=== PATIENT | female | born 1990 | race Caucasian/White ===

== ENCOUNTER 2018-02-15 06:55 | Emergency (ER) | payer OTHER ==
[2018-02-15 08:03] LABS: ABS Basophils 0.1 10^3/ul (0-0.2); ABS Eosinophils 0.1 10^3/ul (0-0.6); ABS Lymphocytes 2.3 10^3/ul (1.0-4.8); ABS Monocytes 0.6 10^3/ul (0-0.8); ABS Neutrophils 5.7 10^3/ul (1.5-7.7); ABS Nucleated RBC 0 10^3/ul; Eosinophil % 1.7 % (0-6); Hematocrit 39 % (35-47); Hemoglobin 12.9 g/dl (12.0-16.0); Lymphocyte % 25.7 % (25-47); Mean Corpuscular HGB Conc 33 g/dl (31-36); Mean Corpuscular Hemoglobin 27 pg (27-31); Mean Corpuscular Volume 82 fL (80-97); Mean Platelet Volume 8.4 um3 (7.4-10.4); Nucleated Red Blood Cells % 0; Platelet Count 220 10^3/ul (150-450); Red Blood Count 4.71 10^6/ul (4.0-5.4); Red Cell Distribution Width 14 % (10.5-15); White Blood Count 8.8 10^3/ul (3.5-10.8)
--- NOTE | 2018-02-15 08:24 | RAD ---
INDICATION: Early with bleeding COMPARISON: None TECHNIQUE: Transvaginal scans were obtained for the purposes of determination. FINDINGS: There is no evidence of an intrauterine gestation and therefore in the setting of A+ test ectopic cannot be excluded. Suggest correlation with serial beta hCGs and follow-up ultrasonography. There is endometrial reactive change. The stripe measures 1.8 cm. Both ovaries appear normal. The right ovary measures 3.6 x 1.8 x 1.5 cm and the left 3.0 x 2.1 x 2.3 cm. There may be a complex cyst in left ovary measuring 1.7 cm. IMPRESSION: NO IDENTIFIABLE INTRAUTERINE GESTATION. SUGGEST CORRELATION WITH SERIAL BETA-HCGS AND FOLLOW-UP ULTRASONOGRAPHY TO ASSESS FOR THE POSSIBILITY OF EARLY VERSUS ECTOPIC . RECOMMEND GYNECOLOGIC REFERRAL INDICATED.
--- NOTE | 2018-02-15 08:41 | ED ---
- HPI Summary HPI Summary: 27 female presents to ER with complaints of right lower quadrant suprapubic pain that began yesterday, improved overnight however worsened this morning around 5 AM. Patient states it was associated with nausea and one episode of vomiting. Does admit to loose stool. Denies any fever/chills/current nausea. Never has had any abdominal surgeries. States she has had 5 pregnancies 2 abortions 2 children and one current. She is 5-1/2 weeks estimated. Last menstrual period was January 07, 2018. States she had some vaginal bleeding this morning however it has since seemed to subside. Was not on any control measures. Confirmed with at-home tests as well as blood work at [facility] last week. No history of ectopic . No past medical history. No medication use. No other complaints. No concern for infection no STD history. No urinary symptoms. - History of Current Complaint Chief Complaint: EDAbdPain Stated Complaint: ABD PAIN Time Seen by Provider: 02/15/18 07:08 Hx Obtained From: Patient Onset/Duration: Started Days Ago - Yesterday, Resolved - 5 out of 10 Timing: Constant, Lasting Hours Severity: Mild - Currently Current Severity: Severe Pain Intensity: 8 Location of Pain: Right Side, Suprapubic Character: Cramping Aggravating Factors: Coughing Alleviating Factors: Nothing Associated Signs and Symptoms: Positive: Nausea, Vaginal Bleeding or Discharge, Vomiting - Assessment Hx Now: Yes Hx : 5 Hx Para: 2 SAB: 0 IEA: 2 History of Ectopic : No Hx Pelvic Inflammatory Disease: No Vaginal Bleeding Amount: Small - Additional Pertinent History Maternal Blood Type and Rh: O Positive - Allergies/Home Medications Allergies/Adverse Reactions: Allergies Allergy/AdvReac Type Severity Reaction Status Date / Time No Known Allergies Allergy Verified 06/14/16 00:42 Home Medications: Home Medications Docusate CAP* [Colace Cap*] 100 mg PO TID PRN 02/15/18 [History Confirmed ] Vit No.129/Iron/Folic [ One Daily] 1 tab PO DAILY 02/15/18 [ History Confirmed 02/15/18] PMH/Surg Hx/FS Hx/Imm Hx Endocrine/Hematology History: Denies: Hx Diabetes Cardiovascular History: Denies: Hx Valvular Heart Disease Respiratory History: Reports: Hx Asthma - Surgical History Surgery Procedure, Year, and Place: n/a - Immunization History Immunizations Up to Date: Yes Infectious Disease History: No Infectious Disease History: Denies: History Other Infectious Disease, Traveled Outside the [place] in Last 30 Days - Family History Known Family History: Positive: None Family History: NON CONTRIBUTORY - Social History Alcohol Use: None Substance Use Type: Reports: None Smoking Status (MU): Never Smoked Tobacco Type: Cigarettes Amount Used/How Often: 1/2 PPD Have You Smoked in the Last Year: Yes Review of Systems Constitutional: Negative Cardiovascular: Negative Respiratory: Negative Positive: Abdominal Pain, Vomiting, Diarrhea, Nausea Genitourinary: Negative Musculoskeletal: Negative Skin: Negative Neurological: Negative All Other Systems Reviewed And Are Negative: Yes Physical Exam - Physical Exam Triage Information Reviewed: Yes Vital Signs On Initial Exam: Temp 98.5 Blood pressure 117/69 Heart rate 77 Respirations 18 O2 98 Vital Signs Reviewed: Yes Appearance: Positive: Well-Appearing, Well-Nourished, Pain Distress - Mild with palpation of abdomen and examination Skin: Positive: Warm, Skin Color Reflects Adequate Perfusion, Dry. Negative: Cold, Numb, Cyanosis @, Pale, Erythema @ Head/Face: Positive: Normal Head/Face Inspection Eyes: Positive: Conjunctiva Clear ENT: Positive: Pharynx normal Neck: Positive: Supple, Nontender Respiratory/Lung Sounds: Positive: Clear to Auscultation, Breath Sounds Present. Negative: Rales, Rhonchi, Wheezes Cardiovascular: Positive: Normal, RRR, Bradycardia. Negative: Murmur, Rub Abdomen Description: Positive: No Organomegaly, Soft, Guarding, Other: - Negative Rovsing, rebound, psoas, Wallace's, does have right lower quadrant/ suprapubic pain/groin on palpation. Negative: Bruit, CVA Tenderness (R), CVA Tenderness (L), Distended, McBurney's Point Tenderness Bowel Sounds: Positive: Present, Hyperactive Musculoskeletal: Positive: Normal, Strength/ROM Intact Neurological: Positive: Normal, Sensory/Motor Intact, Alert, Oriented to Person Place, Time, NV Bundle Intact Distally, Normal Gait Diagnostics - Vital Signs Vital Signs Temp Pulse Resp BP Pulse Ox 02/15/18 08:06 74 107/63 96 02/15/18 08:00 72 95 02/15/18 07:36 76 110/78 98 02/15/18 07:07 78 117/69 95 02/15/18 07:06 77 95 02/15/18 07:03 98.5 F 77 18 117/69 95 - Laboratory Lab Results: Lab Results 02/15/18 02/15/18 Range/Units 07:55 07:55 WBC 8.8 (3.5-10.8) 10^3/ul RBC 4.71 (4.0-5.4) 10^6/ul Hgb 12.9 (12.0-16.0) g/dl Hct 39 (35-47) % MCV 82 (80-97) fL MCH 27 (27-31) pg MCHC 33 (31-36) g/dl RDW 14 (10.5-15) % Plt Count 220 (150-450) 10^3/ul MPV 8.4 (7.4-10.4) um3 Neut % (Auto) 64.8 (38-83) % Lymph % (Auto) 25.7 (25-47) % [place] % (Auto) 7.1 H (0-7) % Eos % (Auto) 1.7 (0-6) % Baso % (Auto) 0.7 (0-2) % Absolute Neuts (auto) 5.7 (1.5-7.7) 10^3/ul Absolute Lymphs (auto) 2.3 (1.0-4.8) 10^3/ul Absolute Monos (auto) 0.6 (0-0.8) 10^3/ul Absolute Eos (auto) 0.1 (0-0.6) 10^3/ul Absolute Basos (auto) 0.1 (0-0.2) 10^3/ul Absolute Nucleated RBC 0 10^3/ul Nucleated RBC % 0 Sodium 136 L (139-145) mmol/L Potassium 3.9 (3.5-5.0) mmol/L Chloride 107 (101-111) mmol/L Carbon Dioxide 22 (22-32) mmol/L Anion Gap 7 (2-11) mmol/L BUN 16 (6-24) mg/dL Creatinine 0.78 (0.51-0.95) mg/dL Est GFR ( Amer) 115.7 (>60) Est GFR (Non-Af Amer) 90.0 (>60) BUN/Creatinine Ratio 20.5 H (8-20) Glucose 110 H (70-100) mg/dL Calcium 9.4 (8.6-10.3) mg/dL Total Bilirubin 0.60 (0.2-1.0) mg/dL AST 14 (13-39) U/L ALT 9 (7-52) U/L Alkaline Phosphatase 45 (34-104) U/L C-Reactive Protein 1.40 (< 5.00) mg/L Total Protein 7.0 (6.4-8.9) g/dL Albumin 4.4 (3.2-5.2) g/dL Globulin 2.6 (2-4) g/dL Albumin/Globulin Ratio 1.7 (1-3) Beta HCG, Quant 428.28 mIU/mL Result Diagrams: 02/15/18 07:55 02/15/18 07:55 Lab Statement: Any lab studies that have been ordered have been reviewed, and results considered in the medical decision making process. - Ultrasound No standard instances Ultrasound Interpretation: No Acute Changes - NO IDENTIFIABLE INTRAUTERINE GESTATION. SUGGEST CORRELATION WITH SERIAL BETA-HCGS AND FOLLOW-UP ULTRASONOGRAPHY TO ASSESS FOR THE POSSIBILITY OF EARLY VERSUS ECTOPIC . RECOMMEND GYNECOLOGIC REFERRAL INDICATED. Appendix: NONVISUALIZATION OF THE APPENDIX. SUGGEST CT IMAGING AND/OR SURGICAL REFERRAL INDICATED FOR PERSISTENT CONCERN OF ACUTE APPENDICITIS. Ultrasound Interpretation Completed By: Radiologist Re-Evaluation - Re-Evaluation First Eval Re-Evaluation Time: 09:40 Change: Improved - Feeling okay updated on all imaging and labs. Agree and understand the plan. Course/Dx - Course Course Of Treatment: Transvaginal ultrasound as well as appendix ultrasound obtained both unremarkable. No IUP was noted and suggestion of complex area on the right. Beta hCG 428. Rest of labs unremarkable without white count and no elevation of CRP. No concern for appendicitis at this time. Appears to be related. Normal vitals rest of physical exam. Pelvic exam performed and unremarkable. Cultures were obtained and pending results. No concern for infection at this time. Spoke with Dr. Wagner as concern for ectopic although early he stated he would follow up with her in 48 hours. States the beta-hCG is 2 small at this time and if anything is early IUP versus threatened miscarriage versus ectopic . Patient was informed of this information she agrees and understands plan. Tylenol and heating pad. If pain worsens or returns is persistent or new symptoms develop including excessive bleeding to return to the ER as this could be a surgical emergency. No further workup required at this time. No other concerns. Follow-up. - Differential Diagnosis/HQI/PQRI: Threatened , Appendicitis, Ectopic , Intrauterine , Early , Vaginal Bleeding - Diagnoses Provider Diagnoses: Right lower quadrant pain, Discharge - Sign-Out/Discharge Documenting (check all that apply): Discharge/Admit/Transfer - Discharge Plan Condition: Stable Disposition: HOME Patient Education Materials: Ectopic (DC), Threatened Miscarriage (ED ), (ED) Referrals: Kim Pino NP [Primary Care Provider] - Donna Wagner MD [Medical Doctor] - Additional Instructions: Please call today to make an appointment with OBGYN for repeat bloodwork/ imaging within 48 hours. Tylenol and heating pad. Any new or worsening symptoms, or if symptoms return please return to ER as we discussed. Increase fluids, get plenty of rest. - Billing Disposition and Condition Condition: STABLE Disposition: HOME
--- NOTE | 2018-02-15 09:33 | RAD ---
INDICATION: Right lower quadrant pain COMPARISON: None TECHNIQUE: Transverse and longitudinal scans of the right lower quadrant were performed utilizing grayscale and color Doppler imaging. FINDINGS: There is nonvisualization the appendix. The examination is therefore indeterminate. There is no mass or free fluid in the right lower quadrant. IMPRESSION: NONVISUALIZATION OF THE APPENDIX. SUGGEST CT IMAGING AND/OR SURGICAL REFERRAL INDICATED FOR PERSISTENT CONCERN OF ACUTE APPENDICITIS.
[2018-02-15 10:03] VITALS: BP 111/73
--- NOTE | 2018-02-16 17:47 | ED ---
Progress - Progress Note Progress Note: Patient's vaginal culture negative for Penny but positive for Gardnerella. Patient's hCG is in the low 400s and ultrasound was indeterminant at time of visit. She has a follow-up tomorrow with Dr. Wagner. Left message to call with patient and will fax results to Dr. Wagner's office in the event he may want to treat however early in and without symptoms these infections are sometimes not treated with antibiotics. No further action at this time. Re-Evaluation - Re-Evaluation First Eval Re-Evaluation Time: 09:40 Change: Improved - Feeling okay updated on all imaging and labs. Agree and understand the plan. Course/Dx - Course Course Of Treatment: Transvaginal ultrasound as well as appendix ultrasound obtained both unremarkable. No IUP was noted and suggestion of complex area on the right. Beta hCG 428. Rest of labs unremarkable without white count and no elevation of CRP. No concern for appendicitis at this time. Appears to be related. Normal vitals rest of physical exam. Pelvic exam performed and unremarkable. Cultures were obtained and pending results. No concern for infection at this time. Spoke with Dr. Wagner as concern for ectopic although early he stated he would follow up with her in 48 hours. States the beta-hCG is 2 small at this time and if anything is early IUP versus threatened miscarriage versus ectopic . Patient was informed of this information she agrees and understands plan. Tylenol and heating pad. If pain worsens or returns is persistent or new symptoms develop including excessive bleeding to return to the ER as this could be a surgical emergency. No further workup required at this time. No other concerns. Follow-up. - Diagnoses Provider Diagnoses: Right lower quadrant pain, Discharge - Sign-Out/Discharge Documenting (check all that apply): Post-Discharge Follow Up - Discharge Plan Condition: Stable Disposition: HOME Patient Education Materials: Ectopic (DC), Threatened Miscarriage (ED ), (ED) Referrals: Kim Pino NP [Primary Care Provider] - Donna Wagner MD [Medical Doctor] - Additional Instructions: Please call today to make an appointment with OBGYN for repeat bloodwork/ imaging within 48 hours. Tylenol and heating pad. Any new or worsening symptoms, or if symptoms return please return to ER as we discussed. Increase fluids, get plenty of rest. - Billing Disposition and Condition Condition: STABLE Disposition: HOME
== END 2018-02-15 10:02 | disposition home or self-care (01) ==
LOC: ED 06:55
DX: O26.891 Other specified pregnancy related conditions, first trimester (principal); Z3A.01 Less than 8 weeks gestation of pregnancy; R10.31 Right lower quadrant pain
CPT/HCPCS: 36415; 76705; 76817; 80053; 84702; 85025; 86140; 86850; 86900; 86901; 87480; 87491; 87510; 87591; 87661; 99283

== ENCOUNTER 2018-03-10 20:37 | Emergency (ER) | payer OTHER ==
--- OUTSIDE RECORDS SUMMARY | 2018-03-10 20:43 | XMS REPORT ---
:1990 External Reference #:[id number] Author Organization [facility] Address [address] [place] [address] Phone [phone] Care Team Providers Name Role Phone Kim Pino GOVERNMENT CLERK Primary Care Physician Unavailable Payers Type Date Identification Numbers Payment Provider Subscriber Commercial Policy Number: [id number] Aetshree Boo Edvin Paulo Group Number: [id number] [address] PayID: [id number] [place] [address] Medigap Part B Expires: 2015 Policy Number: [id number] Aetshree Boo Robin Bates Group Number: [id number] [address] PayID: [id number] [place] [address] Medigap Part B Effective: 2015 Policy Number: [id number] Medicaid ELIZ Bates Expires: 2018 PayID: [id number] [address] [place] [address] Problems Description No Active Problems Family History Date Family Member(s) Problem(s) Comments Father A&W Mother A&W Children 2 First Son A&W First Daughter A&W First Sister A&W Paternal Grandfather due to Cancer () Paternal Grandmother A&W Maternal Grandfather due to MVA () Maternal Grandmother A&W Social History Type Date Description Comments Education Highest level completed, 12th grade GED Marital Status Single Lives With Boyfriend Lives With Daughter Lives With Son Pets 1 dog Occupation Homemaker Cigarette Use Current Cigarette Smoker 1-5 Cigarettes Daily ETOH Use Denies alcohol use Recreational Drug Use Former Drug User +MJ Smoking Patient is a former smoker Daily Caffeine Consumes on average 5 cups of coffee per day Seat Belt/Car Seat Always uses seat belt Currently Active Patient is currently sexually active Contraceptive Methods Current methods include condoms STD's No STD History Allergies, Adverse Reactions, Alerts Date Description Reaction Status Severity Comments 06/16/2012 NKDA active Medications Medication Date Status Form Strength Qnty SIG Indications Ordering Provider Zantac 75 01/17/ Active Tablets 75mg 30tabs 1 tab by mouth Barbara 2016 every day as Hiro needed for , SHEMAR heartburn Breast Pump 12/15/ Active Misc 1units Use as Barbara 2012 directed Hiro , SHEMAR Proventil 06/16/ Active Aerosol 108(90Base 1units 2 puffs prn Moses MEEHAN 2011 ) afsaneh/chandana Loya M.D. Colace 02/15/ Hx Capsules 100mg Three Times Unknown 2018 - Daily 2017 One 02/15/ Hx Tablets Every Day Unknown Daily 2017 - 2017 Tylenol 06/16/ Hx Tablets 325mg 0tabs Q4H Unknown 2015 - 2017 Motrin 06/16/ Hx Tablets 600mg 20tabs Q6H Unknown 2015 - Repack 2017 Micronor 12/15/ Hx Tablets 0.35mg 1Pack 1 tab by mouth Barbara 2012 - every day at Hiro 01/16/ the same time , [facility] 2016 each day Colace 11/14/ Hx Capsules 100mg 60caps 1 tab PO bid Barbara 2012 - prn Hiro 01/16/ Constipation , [facility] 2015 Ferrousul 11/14/ Hx Tablets 325(65Fe) 90tabs 1 tab by mouth Barbara 2012 - mg twice a day Hiro 01/16/ (take with , [facility] 2015 orange juice or vit c tab) Ibuprofen 11/14/ Hx Tablets 600mg 30tabs 1 Tab PO q Barbara 2012 - 6hrs prn Pain Hiro 01/16/ , [facility] 2016 Immunizations CPT Code Status Date Vaccine Lot # [id number] Given 03/31/2016 Tetnus, Diptheria Toxoids And Acellular Pertussis, [id number] PT > 7Yrs Old [address]842 Given 09/08/2012 Tetnus, Diptheria Toxoids And Acellular Pertussis, PT > 7Yrs Old [address] Given 09/08/2012 Influenza Virus Vaccine 3Years Or Older Vital Signs Date Vital Result Comment 02/17/2018 BP Systolic 122 mmHg BP Diastolic 80 mmHg Height 67 inches 5'7" Weight 132.00 lb BMI (Body Mass Index) 20.7 kg/m2 Last Menstrual Period [id number] 4 Parity 2 02/15/2018 BP Systolic 111 mmHg BP Diastolic 73 mmHg Body Temperature 98.8 F Heart Rate 82 /min Respiratory Rate 16 /min Height 67 inches Weight 120.00 lb BMI (Body Mass Index) 18.8 kg/m2 01/18/2016 BP Systolic 118 mmHg BP Diastolic 62 mmHg Height 66.50 inches 5'6.50" Weight 140.00 lb BMI (Body Mass Index) 22.3 kg/m2 Last Menstrual Period [id number] 4 Parity 1 12/15/2012 BP Systolic 104 mmHg BP Diastolic 60 mmHg Height 66.50 inches 5'6.50" Weight 127.00 lb BMI (Body Mass Index) 20.2 kg/m2 Last Menstrual Period 8106349 del 11/12/12 1 Parity 1 06/16/2012 BP Systolic 90 mmHg BP Diastolic 60 mmHg Height 66.50 inches 5'6.50" Weight 120.00 lb BMI (Body Mass Index) 19.1 kg/m2 Last Menstrual Period 2606392 1 Parity 0 Results Test Date Test Result H/L Range Note Laboratory Studies 02/15/2018 Absolute Basophils (auto) 0.1 10^3/ul 0- 0.2 Absolute Eosinophils (auto) 0.1 10^3/ul 0-0.6 Absolute Lymphocytes (auto) 2.3 10^3/ul 1.0-4.8 Absolute Monocytes (auto) 0.6 10^3/ul 0-0.8 Absolute Neutrophils (auto) 5.7 10^3/ul 1.5-7.7 Alanine Aminotransferase (Alt/SGPT) 9 U/L 7-52 Albumin 4.4 g/dL 3.2-5.2 Albumin/Globulin Ratio 1.7 1-3 Alkaline Phosphatase 45 U/L 34-104 Anion Gap 7 mmol/L 2-11 Aspartate Amino Transf (Ast/Sgot) 14 U/L 13-39 BUN/Creatinine Ratio 20.5 High 8-20 Basophils (%) (Auto) 0.7 % 0-2 Beta HCG, Quantitative 428.28 mIU/mL Blood Urea Nitrogen 16 mg/dL 6-24 C-Reactive Protein 1.40 mg/L 0-5.00 Calcium Level 9.4 mg/dL 8.6-10.3 Carbon Dioxide Level 22 mmol/L 22-32 Chloride Level 107 mmol/L 101-111 Creatinine 0.78 mg/dL 0.51-0.95 Eosinophils (%) (Auto) 1.7 % 0-6 Estimated GFR () 115.7 Estimated GFR (Non- 90.0 Globulin 2.6 g/dL 2-4 Glucose Level 110 mg/dL High 70-100 Hematocrit 39 % 35-47 Hemoglobin 12.9 g/dL 12.0-16.0 Lymphocytes (%) (Auto) 25.7 % 25-47 Mean Corpuscular Hemoglobin 27 pg 27-31 Mean Corpuscular Hemoglobin Concent 33 g/dL 31-36 Mean Corpuscular Volume 82 fL 80-97 Mean Platelet Volume 8.4 um3 7.4-10.4 Monocytes (%) (Auto) 7.1 % High 0-7 Neutrophils (%) (Auto) 64.8 % 38-83 Nucleated RBC Absolute Count (auto) 0 10^3/ul Nucleated Red Blood Cells % 0 Platelet Count 220 10^3/ul 150-450 Potassium Level 3.9 mmol/L 3.5-5.0 Red Blood Count 4.71 10^6/ul 4.0-5.4 Red Cell Distribution Width 14 % 10.5-15 Sodium Level 136 mmol/L Low 139-145 Total Bilirubin 0.60 mg/dL 0.2-1.0 Total Protein 7.0 g/dL 6.4-8.9 White Blood Count 8.8 10^3/ul 3.5-10.8 Laboratory test finding 06/05/2016 Rupture of Membranes Negative 1 Laboratory test finding 05/16/2016 Genital For GRP B Strep SEE RESULT BELOW 2 Only Glucose Tolerance 3HR 04/02/2016 GTT 3HR Gestational (SEE NOTE) 3 Gestational Urine Drug Comp 20 Test 03/31/2016 Urine Amphetamine Negative ng/mL 4 Urine Barbiturates Negative ng/mL 5 Urine Benzodiazepines Negative ng/mL 6 Urine Cocaine Negative ng/mL 7 Urine Methadone Negative ng/mL 8 Urine Opiates Negative ng/mL 9 Urine Phencyclidine Negative ng/mL Cutoff: 25 Urine Tetrahydrocannabinol Negative ng/mL Cutoff: 50 10 Urine Oxycodone Negative ng/mL 11 Laboratory test finding 03/31/2016 Glucose 1 HR Post 170 mg/dL High 70- 160 12 Prandial CBC With No Diff 03/31/2016 White Blood Count 10.5 10^3/uL 3.5-10.8 Red Blood Count 3.79 10^6/uL Low 4.0-5.4 Hemoglobin 10.5 g/dL Low 12.0-16.0 Hematocrit 32 % Low 35-47 Mean Corpuscular Volume 85 fL 80-97 Mean Corpuscular Hemoglobin 28 pg 27-31 Mean Corpuscular HGB Conc 33 g/dL 31-36 Red Cell Distribution Width 14 % 10.5-15 Platelet Count 185 10^3/uL 150-450 Mean Platelet Volume 9 um3 7.4-10.4 Laboratory test 03/31/2016 Gardnerella/Yeast: Vaginal SEE RESULT BELOW 13 finding Dna Urine Drug Comp 20 02/15/2016 Urine Amphetamine Negative ng/mL 14 Test Urine Barbiturates Negative ng/mL 15 Urine Benzodiazepines Negative ng/mL 16 Urine Cocaine Negative ng/mL 17 Urine Methadone Negative ng/mL 18 Urine Opiates Negative ng/mL 19 Urine Phencyclidine Negative ng/mL Cutoff: 25 Urine Tetrahydrocannabinol Presumptive Posi <SEE NOTE> ng/mL Cutoff: 50 20 Urine Oxycodone Negative ng/mL 21 THC Confirmation Urine 02/15/2016 Urine Carboxy THC Confirm 72 ng/mL 22 Urine THC Interpretation Positive. 23 GC/Chlamydia Dna Probe 02/15/2016 Chlamydia trachomatis Rna Negative Negative Neisseria gonorrhoeae (GC) Rna Negative Negative Urine Culture And 01/18/2016 Urine Culture SEE RESULT BELOW 24 Sensitivities Lead 01/18/2016 Lead <1.0 g/dL 0.0-4.9 HIV 1/2 AB Evaluation 01/18/2016 HIV 1 2 Antibody Nonreactive Nonreactive 25 Type And Screen 01/18/2016 Antibody Screen NEGATIVE Patient Blood Type O Positive CBC With No Diff 01/18/2016 White Blood Count 7.9 10^3/uL 3.5-10.8 Red Blood Count 3.82 10^6/uL Low 4.0-5.4 Hemoglobin 10.7 g/dL Low 12.0-16.0 Hematocrit 32 % Low 35-47 Mean Corpuscular Volume 84 fL 80-97 Mean Corpuscular Hemoglobin 28 pg 27-31 Mean Corpuscular HGB Conc 33 g/dL 31-36 Red Cell Distribution Width 14 % 10.5-15 Platelet Count 199 10^3/uL 150-450 Mean Platelet Volume 9 um3 7.4-10.4 PNL No Urine 01/18/2016 Rubella Screen Immune IU/mL Immune Hemoglobin A1c 5.2 % Less than 6.0 26 Hepatitis B Surface Ag Nonreactive Nonreactive Syphillis Igg W/Reflex RPR Nonreactive Nonreactive 27 Parvovirus B19 AB (Igg,M) 01/18/2016 Parvovirus B19 AB (Igm) 0.1 index & lt;0.9 28 Parvovirus B19 AB (Igg) 0.3 index <0.9 Laboratory test finding 10/06/2012 Group B Strep Culture Screen (SEE NOTE) 29 Urine Drug Comp 20 Test 10/06/2012 Urine Amphetamine Negative ng/mL 30 Urine Barbiturates Negative ng/mL 31 Urine Benzodiazepines Negative ng/mL 32 Urine Cocaine Negative ng/mL 33 Urine Methadone Negative ng/mL 34 Urine Opiates Negative ng/mL 35 Urine Phencyclidine Negative ng/mL Cutoff: 25 Urine Propoxyphene Negative ng/mL 36 Urine Tetrahydrocannabinol Presumptive Posi <SEE NOTE> ng/mL Cutoff: 20 37 Creatinine 114.7 mg/dL Specific [place] 1.018 pH 6.9 Oxidants Negative 38 Urine Opiates Screen Negative 39 Urine Codeine Confirmation Negative ng/mL 40 Urine Hydrocodone Confirm Negative ng/mL 41 Urine Hydromorphone Confirm Negative ng/mL 42 Urine Morphine Confirm Negative ng/mL 43 Urine Oxycodone Confirm Negative ng/mL 44 Urine Opiates Interpretation Negative. 45 THC Confirmation Urine 10/06/2012 Urine THC Screen TNP Cutoff: 20 46 Urine THC Interpretation TNP 47 Glucose Tolerance 2HR 08/11/2012 GTT 2HR Gestational (SEE NOTE) 48 Gestational CBC Auto Diff 08/11/2012 White Blood Count 11.4 10^3/uL High 4.8-10.8 Red Blood Count 3.74 10^6/uL Low 4.0-5.4 Hemoglobin 10.8 g/dL Low 12.0-16.0 Hematocrit 33 % Low 35-47 Mean Corpuscular Volume 89 fL 80-97 Mean Corpuscular Hemoglobin 29 pg 27-31 Mean Corpuscular HGB Conc 32 g/dL 31-36 Red Cell Distribution Width 15 % 10.5-15 Platelet Count 185 10^3/uL 150-450 Mean Platelet Volume 9 um3 7.4-10.4 Abs Neutrophils 7.7 10^3/uL 1.5-7.7 Abs Lymphocytes 2.6 10^3/uL 1.0-4.8 Abs Monocytes 0.9 10^3/uL High 0-0.8 Abs Eosinophils 0.1 10^3/uL 0-0.6 Abs Basophils 0.1 10^3/uL 0-0.2 Abs Nucleated RBC 0.01 10^3/uL Granulocyte % 68.0 % 38-83 Lymphocyte % 22.4 % Low 25-47 Monocyte % 7.9 % 1-9 Eosinophil % 1.2 % 0-6 Basophil % 0.5 % 0-2 Nucleated Red Blood Cells % 0.1 THC Confirmation Urine 08/11/2012 Urine THC Screen Presumptive Posi Cutoff: 20 49 <SEE NOTE> Urine Carboxy THC Confirm 244 ng/mL Cutoff: 3 Urine THC Interpretation Positive. 50 Urine Drug Comp 20 Test 08/11/2012 Urine Amphetamine Negative ng/mL 51 Urine Barbiturates Negative ng/mL 52 Urine Benzodiazepines Negative ng/mL 53 Urine Cocaine Negative ng/mL 54 Urine Methadone Negative ng/mL 55 Urine Opiates Negative ng/mL 56 Urine Phencyclidine Negative ng/mL Cutoff: 25 Urine Propoxyphene Negative ng/mL 57 Urine Tetrahydrocannabinol Presumptive Posi <SEE NOTE> ng/mL Cutoff: 20 58 Creatinine 124.8 mg/dL Specific [place] 1.022 pH 6.8 Oxidants Negative 59 Urine Opiates Screen Negative 60 Urine Codeine Confirmation Negative ng/mL 61 Urine Hydrocodone Confirm Negative ng/mL 62 Urine Hydromorphone Confirm Negative ng/mL 63 Urine Morphine Confirm Negative ng/mL 64 Urine Oxycodone Confirm Negative ng/mL 65 Urine Opiates Interpretation Negative. 66 Urine Drug SCR ED 08/01/2012 Amphetamine Ur Screen None Detected None Detect & [facility] Barbiturates Urine Screen None Detected None Detect Benzodiazepine Urine Screen None Detected None Detect Urine Cannabinoids Screen Positive None Detect Urine Cocaine Screen None Detected None Detect Urine Opiates Screen None Detected None Detect Urine Phencyclidine Screen None Detected None Detect 67 Urinalysis W/Microscopic 08/01/2012 Urine Color Francoise Urine Appearance Clear Urine Specific [place] 1.023 1.010-1.030 Urine Esterase Trace Negative Urine Nitrate Negative Negative Urine Urobilinogen Negative Negative Urine Protein Negative Negative Urine pH 6.0 5-9 Urine Blood Negative Negative Urine Ketones Negative Negative Urine Bilirubin Negative Negative Urine Glucose Negative Negative Urine WBC None Seen None Seen Urine RBC None Seen None Seen Urine Epithelial Cells 1+ Squamous /hpf None Seen Bacteria Urine 1+ None Seen Urine Culture And 08/01/2012 Urine Culture (SEE NOTE) 68 Sensitivities Prental PNL No Urine 06/16/2012 Hepatitis B Surface Nonreactive Nonreactive Ag Rubella Screen IMMUNE Immune Hemoglobin A1c 5.4 % Less Than 6.0 69 Syphilis Screen 06/16/2012 Syphilis IgG TNP Nonreactive RPR NON-REACTIVE Nonreactive RPR Titer TNP Pediatric/Maternal YES Vad 06/16/2012 Vad Final Nonreactive Nonreactive 70 Type & Screen 06/16/2012 Patient Blood Type O POSITIVE Antibody Screen NEGATIVE CBC No Diff 06/16/2012 White Blood Count 13.0 CUMM High 4.8-10.8 Red Cell Count 3.75 CUMM Low 4.2-5.4 Hemoglobin 10.7 g/dL Low 12.0-16.0 Hematocrit 32 % Low 35-47 Mean Corpuscular Volume 85 um3 79-97 Mean Corpuscular Hemoglob 29 pg 27-31 Mean Corpuscular HGB Cone 34 g/dL 32-36 Redcell Distribution WDTH 14 % 10.5-15 Platelet Count 182 CUMM 150-450 Mean Platelet Volume 8.7 um3 7.4-10.4 GC/Chlamydia Aptima 06/16/2012 M <SEE NOTE> 71 Urine Culture & Sensitivi 06/16/2012 M <SEE NOTE&gt ; 72 1 A NEGATIVE results indicates there is no evidence of membrane rupture. 2 SEE RESULT BELOW Name: ROBIN BATES : [address]: Lore CLEMENTE Acct: [id number] Unit: [id number] AGE: 25 Location: [facility] Re05/16/16 SEX: F Status: REG REF SPEC: [id number] KELSIE: 05/16/16-[address]: Lore Brand [facility] REQ: [id number] RECD: 05/16/16 STATUS: COMP _ SOURCE: CER/VAG/RE SPDESC: ORDERED: Grp B Strp Scrn COMMENTS: [id number] QUERIES: Is Patient Penicillin Allergic? N Is patient penicillin allergic and/or sensitivities needed? N Provider Requisition # [id number]_ Procedure Result Reported Site Group B Strep Culture Screen Final 05/18/16- 1108 ML Group B Strep Screen Negative * ML - [facility] ([facility]) . END OF REPORT * ML=Testing performed at Main Lab DEPARTMENT OF PATHOLOGY, [address] [place] [address] Ko Cox M.D. Director [facility] # [id number] 3 GLU Fast 76 Col: 04/02/16 0835 GLU 1HR 105 Col: 04/02/16 0942 GLU 2HR 82 Col: 04/02/16 1042 GLU 3HR 52 Col: 04/02/16 1147 GLU Interp Col: 04/02/16 0835 GTT normal ranges for obstetrics per the [place] [employer] (ACOG).Based on 100 gm glucose load: Fasting <95 mg/dl 1hr <180 mg/dl 2hr <155 mg/dl 3hr <140 mg/dl 4 REFERENCE VALUE Cutoff: 500 5 REFERENCE VALUE Cutoff: 200 6 REFERENCE VALUE Cutoff: 100 7 REFERENCE VALUE Cutoff: 150 8 REFERENCE VALUE Cutoff: 300 9 REFERENCE VALUE Cutoff: 300 10 ADDITIONAL INFORMATION This report is intended for use in clinical monitoring or management of patients. It is not intended for use in employment-related testing. 11 REFERENCE VALUE Cutoff: 100 ADDITIONAL INFORMATION This report is intended for use in clinical monitoring or management of patients. It is not intended for use in employment-related testing. Test Performed by: [address] [address] Cafe Associate: Efrain Martinez II, M.D., Ph.D. 12 [facility] [place] 3155 13 SEE RESULT BELOW Name: ROBIN BATES : [address]: Peggy MARIN Acct: [id number] Unit: [id number] AGE: 25 Location: [facility] Re03/31/16 SEX: F Status: REG REF SPEC: [id number] KELSIE: 03/31/16-[address] [facility] [address]: Peggy Cochran CM REQ: [id number] RECD: 04/01/16 STATUS: COMP _ S[facility] ORDERED: Mike,Yeast DNA, Trich DNA COMMENTS: [id number] Procedure Result Reported Site Gardnerella/Yeast: Vaginal DNA Final 04/02/16- 1056 ML Organism 1 Negative Penny Organism 2 Negative Gardnerella The presence of G. vaginalis, although suggestive, is not diagnostic for bacterial vaginosis. Results should be interpreted in conjuction with other clinical and laboratory data available. Women with vaginal discharge should be evaluated for risk factors of cervicitis and pelvic inflammatory disease, toxic shock syndrome (S.aureus), and if present, evaluated for organisms not included in this assay such as N. gonorrhoeae, C. trachomatis, Mobiluncus, Mycoplasma and/or Prevotella. Mixed infections may occur. The performance of this test on patient specimens collected during or immediately after antimicrobial therapy is unknown. The presence or absence of Penny species, or G. vaginalis cannot be used as a test for therapeutic success or failure. Trichomonas: Vaginal DNA Probe Final 04/02/16- 1056 ML Organism 1 Negative Trichomonas CONTINUED ON NEXT PAGE * ML=Testing performed at Main Lab DEPARTMENT OF PATHOLOGY, [address] [place] [address] Ko Cox M.D. Director [facility] # [id number] Patient: ROBIN BATES [id number] (Continued) Specimen: [id number] Collected: 03/31/16-1427 Received: 04/01/16-1101 (Continued) Procedure Result Reported Site Trichomonas: Vaginal DNA Probe Final (continued) 04/02/16- 1056 The presence or absence of T. vaginalis cannot be used as a test for therapeutic success or failure. * ML - MAIN LAB ([facility]) . END OF REPORT * ML=Testing performed at Main Lab DEPARTMENT OF PATHOLOGY, [address] [place] [address] Ko Cox M.D. Director [facility] # [id number] 14 REFERENCE VALUE Cutoff: 500 15 REFERENCE VALUE Cutoff: 200 16 REFERENCE VALUE Cutoff: 100 17 REFERENCE VALUE Cutoff: 150 18 REFERENCE VALUE Cutoff: 300 19 REFERENCE VALUE Cutoff: 300 20 Presumptive Positive Drug confirmation to follow. Presumptive Positive means that the screening method is positive, but the test needs to be run by a confirmatory method before being finalized. ADDITIONAL INFORMATION This report is intended for use in clinical monitoring or management of patients. It is not intended for use in employment-related testing. 21 REFERENCE VALUE Cutoff: 100 ADDITIONAL INFORMATION This report is intended for use in clinical monitoring or management of patients. It is not intended for use in employment-related testing. Test Performed by: [facility] [address] Cafe Associate: Efrain Martinez II, M.D., Ph.D. 22 REFERENCE VALUE Cutoff: 3.0 23 ADDITIONAL INFORMATION This report is intended for use in clinical monitoring and management of patients. It is not intended for use in employment-related testing. Test Performed by: [facility] [place] [id number] Cafe Associate: Efrain Martinez II, M.D., Ph.D. 24 SEE RESULT BELOW Name: ROBIN BATES : [address]: Barbara Bosch [facility] Acct: [id number] Unit: [id number] AGE: 25 Location: [facility] Re01/18/16 SEX: F Status: REG REF SPEC: [id number] KELSIE: 01/18/16-[address]: Barbara Bosch [facility] REQ: [id number] RECD: 01/18/16 STATUS: COMP _ SOURCE: URINE SPDESC: ORDERED: Urine Culture Procedure Result Reported Site Urine Culture Final 01/20/16- 0836 ML No growth of clinically significant organisms * ML - MAIN LAB ([facility]) . END OF REPORT * ML=Testing performed at Main Lab DEPARTMENT OF PATHOLOGY, [address] [place] [address] Ko Cox M.D. Director [facility] # [id number] 25 It is recognized that currently available assays for the detection of antibodies to HIV-1 and/or HIV-2 may not detect all infected individuals. HIV antibodies may be undetectable in some stages of the infection and in some clinical conditions. The performance of this assay has not been established for populations of infants or children. Assayed by Chemiluminescence Microparticle Immunoassay on the Siemens Advia Centaur CP. Values obtained with different methods or kits cannot be used interchangeably.The diagnostic specificity of the ADVIA Centaur 1/O/2 Enhanced assay in the low risk population was 99.90% (6052/6058) with a 95% confidence interval of 99.78 to 99.96%. 26 Therapeutic target for the treatment of diabetes Mellitus patients is <7% HBA1C, and in selective patients <6.0%.Please refer to [place] Diabetes Association Diabetic care guidelines for further information. 27 Warning: A positive result is not useful for establishing a diagnosis of syphilis. In most situations, such a result may reflect a prior treated infection; a negative result can exclude a diagnosis of syphilis except for incubating or early primary disease. 28 Reference Range: <0.9 Negative 0.9-1.1 Equivocal >1.1 Positive IgG persists for years and provides life-long immunity. Results from any one IgM assay should not be used as a sole determinant of a current or recent infection. Because IgM tests can yield false positive results and low levels of IgM antibody may persist for months post infection, reliance on a single test result could be misleading. If an acute infection is suspected, consider obtaining a new specimen and submit for both IgG and IgM testing in two or more weeks. To diagnose current infection, consider Parvovirus B19 DNA, PCR. 29 RUN DATE: 10/09/12 [facility] LIVE PAGE 1 RUN TIME: [address] [place], [place] [address] Specimen Inquiry Name: PAULOROBIN : [address]: Cheryl Metzger CNM Acct: [id number] Unit: [id number] AGE: 21 Location: [facility] Re10/06/12 SEX: F Status: REG REF SPEC: [id number] KELSIE: 10/06/12-[address] [facility] [address]: Cheryl Metzger CNM REQ: [id number] RECD: 10/07/12 STATUS: COMP _ SOURCE: CX/REC SPDESC: ORDERED: Annette Pollockn QUERIES: Medent Number [id number] Procedure Result Verified Site Group B Strep Culture Screen Final 10/09/12- 0942 ML Group B Strep Screen Negative END OF REPORT * ML=Testing performed at Main Lab DEPARTMENT OF PATHOLOGY, [address] [place] [address] Ko Cox M.D. Director [facility] Permit #[id number] 30 -- REFERENCE VALUE -- Cutoff: 500 31 -- REFERENCE VALUE -- Cutoff: 200 32 -- REFERENCE VALUE -- Cutoff: 200 33 -- REFERENCE VALUE -- Cutoff: 150 34 -- REFERENCE VALUE -- Cutoff: 300 35 -- REFERENCE VALUE -- Cutoff: 300 36 -- REFERENCE VALUE -- Cutoff: 300 37 Presumptive Positive Drug confirmation to follow. Presumptive Positive means that the screening method is positive, but the test needs to be run by a confirmatory method before being finalized. This report is intended for use in clinical monitoring or management of patients. It is not intended for use in employment-related testing. 38 Test Performed by: [address] [address] Cafe Associate: Boby Clements III, M.D. 39 -- REFERENCE VALUE -- Cutoff: 300 40 -- REFERENCE VALUE -- Cutoff: 100 41 -- REFERENCE VALUE -- Cutoff: 100 42 -- REFERENCE VALUE -- Cutoff: 100 43 -- REFERENCE VALUE -- Cutoff: 100 44 -- REFERENCE VALUE -- Cutoff: 100 45 This report is intended for use in clinical monitoring and management of patients. It is not intended for use in employment-related testing. Test Performed by: [address] [address] Cafe Associate: Boby Clements III, M.D. 46 Tetrahydrocannabinol Conf, U was cancelled on 10/10/2012 at 14:04; Test canceled. Unknown interfering substance present; unable to obtain results. 47 Tetrahydrocannabinol Conf, U was cancelled on 10/10/2012 at 14:04; Test canceled. Unknown interfering substance present; unable to obtain results. This report is intended for use in clinical monitoring and management of patients. It is not intended for use in employment-related testing. Test Performed by: [address] [address] Cafe Associate: Boby Clements III, M.D. 48 GLU Fast 82 Col: 08/11/12 0822 GLU 1HR 139 Col: 08/11/12 0922 GLU 2HR 112 Col: 08/11/12 1022 GTT Interp Col: 08/11/12 0822 Gestational Diabetes Diagnostic: OGTT Glucose Load: samples drawn after 75-gram glucose drink Target Levels: Fasting <92 mg/dl 1hr <180 mg/dl 2hr <153 mg/dl If ONE or more values meet or exceed the target level, gestational diabetes is diagnosed. 49 Presumptive Positive 50 This report is intended for use in clinical monitoring and management of patients. It is not intended for use in employment-related testing. Test Performed by: [address] [address] Cafe Associate: Boby Clements III, M.D. R 51 -- REFERENCE VALUE -- Cutoff: 500 R 52 -- REFERENCE VALUE -- Cutoff: 200 R 53 -- REFERENCE VALUE -- Cutoff: 200 R 54 -- REFERENCE VALUE -- Cutoff: 150 R 55 -- REFERENCE VALUE -- Cutoff: 300 R 56 -- REFERENCE VALUE -- Cutoff: 300 R 57 -- REFERENCE VALUE -- Cutoff: 300 R 58 Presumptive Positive Drug confirmation to follow. Presumptive Positive means that the screening method is positive, but the test needs to be run by a confirmatory method before being finalized. This report is intended for use in clinical monitoring or management of patients. It is not intended for use in employment-related testing. R 59 Test Performed by: [address] [address] Cafe Associate: Boby Clements III, M.D. R 60 -- REFERENCE VALUE -- Cutoff: 300 R 61 -- REFERENCE VALUE -- Cutoff: 100 R 62 -- REFERENCE VALUE -- Cutoff: 100 R 63 -- REFERENCE VALUE -- Cutoff: 100 R 64 -- REFERENCE VALUE -- Cutoff: 100 R 65 -- REFERENCE VALUE -- Cutoff: 100 R 66 This report is intended for use in clinical monitoring and management of patients. It is not intended for use in employment-related testing. Test Performed by: [address] [address] Cafe Associate: Boby Clements III, M.D. R 67 The urine specimen was tested at the listed cutoffs: Drug class test level (ng/ml) Amphetamines 300 Barbituates 200 Benzodiazepine metabolites 200 Cocaine metabolites 300 Cannabinoids 25 Opiates 200 Pcp 25 This is a screening procedure. Positive results are not confirmed. Specimen was received without chain of custody. Results should be used for medical purposes only. 68 RUN DATE: 08/03/12 [facility] LAB LIVE PAGE 1 RUN TIME: 1009 [address] [place], [place] [address] Specimen Inquiry Name: ROBIN BATES : [address]: Omi LOMAX,Dvorah Acct: [id number] Unit: [id number] AGE: 21 Location: [facility] Re08/01/12 SEX: F Status: DEP REF SPEC: [id number] KELSIE: 08/01/[address]: Omi LOMAX, Dvorah REQ: [id number] RECD: 08/01/12 STATUS: COMP _ SOURCE: URINE SPDESC: ORDERED: Urine Culture QUERIES: Urine Source: Clean Catch Procedure Result Verified Site Urine Culture Final 08/03/12- 1008 ML Organism 1 NORMAL VANESA Ward Count 50-75,000 (Many) CFU/ML END OF REPORT * ML=Testing performed at Main Lab DEPARTMENT OF PATHOLOGY, [address] [place] [address] Ko Cox M.D. Director [facility] Permit #[id number] 69 THERAPEUTIC TARGET FOR THE TREATMENT OF DIABETES MELLITUS PATIENTS IS <7% HBA1C, AND IN SELECTIVE PATIENTS <6.0%. PLEASE REFER TO [employer] DIABETIC CARE GUIDELINES FOR FURTHER INFORMATION. 70 It is recognized that currently available assays for the detection of antibodies to HIV-1 and/or HIV-2 may not detect all infected individuals. HIV antibodies may be undetectable in some stages of the infection and in some clinical conditions. The performance of this assay has not been established for populations of infants or children. Assayed by Chemiluminescence Microparticle Immunoassay on the [employer] Advia Centaur CP. Values obtained with different methods or kits cannot be used interchangeably.The diagnostic specificity of the ADVIA Centaur 1/O/2 Enhanced assay in the low risk population was 99.90% (6052/6058) with a 95% confidence interval of 99.78 to 99.96%. 71 RUN DATE: 06/18/12 [facility] NMI LIVE PAGE 1 RUN TIME: 1310 Specimen Inquiry RUN USER: INTERFACE Name: ROBIN BATES Status: REG REF Re06/16/12 Age/Sex: 21/F Unit#: [id number] Location: [facility] : [birth year] SPEC #: [id number] KELSIE: 06/16/12 STATUS: MORTEZA REQ #: [id number] RECD: 06/16/12-[address] [facility] [address]: Seth PARNELL,Alysa SOURCE: ENDOCERVIX ENTR: 06/16/12-[address] [facility] [address]: [facility] ORDERED: GC/CHL APTIMA COMMENTS: 92 PER SPEC QUERIES: MEDENT REQUISITION # [id number] ACT WKST: GCCHL 06/18/12 #1 Procedure Result Verified Site > CHLAMYDIA TRACHOMATIS RNA Final -1309 ML NEGATIVE FOR CHLAMYDIA TRACHOMATIS rRNA A negative result does not preclude the presence of a C.trachomatis or N.gonorrhoeae infection because results are dependent on adequate specimen collection, absence of inhibitors, and sufficient rRNA to be detected. Test results may be affected by improper specimen collection, improper specimen storage, technical error, or specimen mixup. Limitations of the Procedure: The Aptima Combo 2 Assay is not intended for the evaluation of suspected sexual abuse or for other medico-legal indications. For those patients for whom a false positive result may have adverse psychosocial impact, the [facility] recommends retesting by a method using an alternate technology. Therapeutic failure or success cannot be determined with the Aptima Combo 2 Assay since nucleic acid may persist following appropriate antimicrobial therapy. Results from the APTIMA Combo 2 Assay should be interpreted in conjunction with other laboraotry and clinical data available to the clinician. Performance characteristics for detecting C. trachomatis and N. gonorrhoeae are derived from high prevalence populations. Positive results in low prevalence populations should be interpreted carefully with the understanding that the likelihood of a false positive may be higher than a true positive. DEPARTMENT OF PATHOLOGY, [address] [place] [address] [facility] Permit #[id number] Ko Cox M.D. Director Geovanna Davis M.D. [employer] Supervisor RUN DATE: 06/18/12 [facility] NMI LIVE PAGE 2 RUN TIME: 1310 Specimen Inquiry RUN USER: INTERFACE Name: ROBIN BATES Status: REG REF Re06/16/12 Age/Sex: 21/F Unit#: [id number] Location: [email or web address]O.B. : 92 -- -- CONTINU ED Procedure Result Verified Site > GC (N. GONORRHOEAE) RNA Final -1309 ML NEGATIVE FOR NEISSERIA GONORRHOEAE rRNA A negative result does not preclude the presence of a C.trachomatis or N.gonorrhoeae infection because results are dependent on adequate specimen collection, absence of inhibitors, and sufficient rRNA to be detected. Test results may be affected by improper specimen collection, improper specimen storage, technical error, or specimen mixup. Limitations of the Procedure: The Aptima Combo 2 Assay is not intended for the evaluation of suspected sexual abuse or for other medico-legal indications. For those patients for whom a false positive result may have adverse psychosocial impact, the [facility] recommends retesting by a method using an alternate technology. Therapeutic failure or success cannot be determined with the Aptima Combo 2 Assay since nucleic acid may persist following appropriate antimicrobial therapy. Results from the APTIMA Combo 2 Assay should be interpreted in conjunction with other laboraotry and clinical data available to the clinician. Performance characteristics for detecting C. trachomatis and N. gonorrhoeae are derived from high prevalence populations. Positive results in low prevalence populations should be interpreted carefully with the understanding that the likelihood of a false positive may be higher than a true positive. [facility] Permit #[id number] [facility] [address] [facility] [address] DEPARTMENT OF PATHOLOGY, [facility] [employer] [place], [place] [address] [facility] Permit #[id number] Anuel Raphael M.D. Hot [employer] Plating Supervisor 72 RUN DATE: 06/18/12 [facility] NMI LIVE PAGE 1 RUN TIME: 914 Specimen Inquiry RUN USER: INTERFACE Name: ROBIN BATES Status: REG REF Re06/16/12 Age/Sex: 21/F Unit#: [id number] Location: [facility] : 92 SPEC #: [id number] KELSIE: 06/16/12 STATUS: COMP REQ #: [id number] RECD: 06/16/[address] [facility] [address]: Alysa Ann NP SOURCE: URINE ENTR: 06/16/12-[address]: HUGH: ORDERED: URINE C S COMMENTS: SPECIMEN DESCRIPTION: URINE, CLEAN CATCH QUERIES: [facility] MEDENT REQUISITION # [id number] SPECIMEN DESCRIPTION: URINE, CLEAN CATCH ACT WKST: UR 06/18/12 #1 Procedure Result Verified Site > URINE CULTURE SENSITIVI Final -914 ML FINAL: NO GROWTH DAY 2 (<1,000 CFU/mL) ML - [facility] State Permit #[id number] [address] [place] [id number] DEPARTMENT OF PATHOLOGY, [address] [place] [address] [facility] Permit #[id number] Ko Cox M.D. Director Geovanna Davis M.D. [employer] Plating Supervisor Procedures Date CPT Code Description Status 06/14/2016 71957 Obstetric Care Routine Completed 05/16/2016 05148 Echography Uterus Limited Completed 04/23/2016 98829 Non-Stress Test Completed 03/31/2016 47986 Injection Intramuscular Or Subcutaneous Completed 01/18/2016 42473 Echography Uterus Complete Completed 11/12/2012 28368 Obstetric Care Routine Completed 11/09/2012 82315 OB Ultrasound First Trimester Completed 11/09/2012 02051 Non-Stress Test Completed 10/21/2012 75443 Echography Uterus Follow-Up Or Repeat Completed 09/08/2012 98122 Injection Intramuscular Or Subcutaneous Completed 09/08/2012 96495 Injection Intramuscular Or Subcutaneous Completed 08/11/2012 08229 Echography Uterus Follow-Up Or Repeat Completed 08/01/2012 00831 Echography Transvaginal Completed 08/01/2012 55007 Biophysical Profile W/ NST Completed 06/16/2012 72210 Echography Uterus Complete Completed Encounters Type Date Location Provider CPT E/M Dx Office Visit 06/05/2016 3:24p [place] [address] O47.1 Office Visit 04/23/2016 3:31p [place] [address] O47.00 Office Visit 08/01/2012 7:28p Delivery Clifford Braga M.D. [address] [phone] Plan of Care No Information Available
[2018-03-10 21:05] VITALS: BP 105/65
--- NOTE | 2018-03-10 21:27 | RAD ---
HISTORY: Crush injury second digit COMPARISONS: None VIEWS: 3, Frontal, lateral, and oblique views of the second digit of the right hand FINDINGS: BONE DENSITY: Normal. BONES: There is no displaced fracture. JOINTS: There is no arthropathy. ALIGNMENT: There is no dislocation. SOFT TISSUES: Unremarkable. OTHER FINDINGS: None. IMPRESSION: NO ACUTE OSSEOUS INJURY. IF SYMPTOMS PERSIST, RECOMMEND REPEAT IMAGING.
[2018-03-10] MEDS ORDERED: Mupirocin 2% OINT* TUBE TOPICAL ONE (22:10)
--- NOTE | 2018-03-10 22:14 | UC ---
Valerie Lopez Emily, scribed for Efrain Beavers MD on 03/10/18 at 2211 . Hand/Wrist HPI - HPI Summary HPI Summary: This patient is a 27 year old F presenting to urgent care accompanied by friend with a chief complaint of R second finger pain after slamming her finger in a car door at 1200 today. The patient rates the pain 4/10 in severity. Symptoms aggravated by nothing. Symptoms alleviated by nothing. Medications reviewed. Allergies reviewed. - History Of Current Complaint Chief Complaint: UCUpperExtremity Stated Complaint: FINGER INJURY Time Seen by Provider: 03/10/18 22:01 Hx Obtained From: Patient Hx Last Menstrual Period: 08/31/15 ?: No Onset/Duration: Sudden Onset, Lasting Hours, Still Present Severity Initially: Moderate Severity Currently: Moderate Pain Intensity: 4 Pain Scale Used: 0-10 Numeric Character Of Pain: Throbbing Aggravating Factor(s): Other - Nothing Alleviating Factor(s): Nothing - Allergies/Home Medications Allergies/Adverse Reactions: Allergies Allergy/AdvReac Type Severity Reaction Status Date / Time No Known Allergies Allergy Verified 03/10/18 21:05 Home Medications: Home Medications Albuterol HFA INHALER* [Ventolin HFA Inhaler*] 1 puff INH Q4H PRN 03/10/18 [ History Confirmed 03/10/18] Omeprazole CAP* [Prilosec CAP* 20 MG] 20 mg PO DAILY 03/10/18 [History Confirmed 03/10/18] PMH/Surg Hx/FS Hx/Imm Hx Previously Healthy: No Respiratory History: Asthma GI/ History: Gastroesophageal Reflux - Surgical History Surgical History: None Surgery Procedure, Year, and Place: n/a - Family History Known Family History: Negative: Cardiac Disease, Diabetes - Social History Occupation: Employed Full-time Lives: With Family Alcohol Use: None Substance Use Type: None Smoking Status (MU): Light Every Day Tobacco Smoker Type: Cigarettes Amount Used/How Often: 1/2 PPD Have You Smoked in the Last Year: Yes When Did the Patient Quit Smoking/Using Tobacco: 10/25/15 Household Exposure Type: Cigarettes - Immunization History Most Recent Influenza Vaccination: unknown Most Recent Tetanus Shot: 03/31/16 Most Recent Pneumonia Vaccination: none Review of Systems Constitutional: Other - Negative fever Musculoskeletal: Other: - Positive R index finger pain All Other Systems Reviewed And Are Negative: Yes Physical Exam - Summary Physical Exam Summary: General: well-appearing, no pain distress Skin: warm, color reflects adequate perfusion, dry. On the R index finger, at the base of the nail there is a 5mm skin tear that is not full thickness. Head: normal Eyes: EOMI, CLEO ENT: normal Neck: supple, nontender Respiratory: CTA, breath sounds present Cardiovascular: RRR Abdomen: soft, nontender Bowel: present Musculoskeletal: Distal R index finger is swollen. There is ecchymosis. Pain with ROM. FROM. Good capillary refill. strength/ROM intact Neurological: sensory/motor intact, A&O x3 Psychological: affect/mood appropriate Triage Information Reviewed: Yes Vital Signs: Initial Vital Signs Temp 98.9 F 03/10/18 21:02 Pulse 74 03/10/18 21:02 Resp 18 03/10/18 21:02 BP 105/65 03/10/18 21:02 Pulse Ox 100 03/10/18 21:02 Vital Signs Reviewed: Yes Diagnostics - Radiology Finger XR Radiology Interpretation Completed By: Radiologist - Finger XR reveals, per radiologist, no acute osseous injury. If symptoms persist, recommend repeat imaging. Physician has reviewed this radiology report. Hand/Wrist Course/Dx - Course Course Of Treatment: LACERATION IS A SKIN TEAR THEREFORE, NO SUTURES PLACED. REPORTS TD WITHIN THE LAST 5 YEARS. - Differential Dx/Diagnosis Provider Diagnoses: RIGHT INDEX FINGER CRUSH INJURY WITH SUPERFICIAL LACERATION Discharge - Sign-Out/Discharge Documenting (check all that apply): Discharge/Admit/Transfer - Discharge Plan Condition: Stable Disposition: HOME Patient Education Materials: Finger Laceration (ED), Crush Injury (ED) Referrals: Kim Pino NP [Primary Care Provider] - Additional Instructions: FOLLOW UP WITH YOUR DOCTOR IF NOT COMPLETELY IMPROVED. GET RECHECKED FOR ANY WORSENING OF YOUR CONDITION OR QUESTIONS OR CONCERNS. - Billing Disposition and Condition Condition: STABLE Disposition: HOME The documentation as recorded by the Valerie dockery Emily accurately reflects the service I personally performed and the decisions made by me, Efrain Beavers MD.
== END 2018-03-10 22:17 | disposition home or self-care (01) ==
LOC: UCEAST 20:37
DX: S61.210A Laceration without foreign body of right index finger without damage to nail, initial encounter (principal); V49.3XXA Car occupant (driver) (passenger) injured in unspecified nontraffic accident, initial encounter; Y93.89 Activity, other specified; Y92.9 Unspecified place or not applicable; K21.9 Gastro-esophageal reflux disease without esophagitis; J45.909 Unspecified asthma, uncomplicated; Z87.891 Personal history of nicotine dependence
CPT/HCPCS: 73140; 99212; G0463

== ENCOUNTER 2018-07-20 21:07 | Emergency (ER) | payer OTHER ==
--- OUTSIDE RECORDS SUMMARY | 2018-07-20 21:25 | XMS REPORT ---
:1990 External Reference #:[id number] Author Organization [facility] Address [address] [place] [address] Phone [phone] Care Team Providers Name Role Phone Chris Reyna MD Care Team Information Assignment Officer Unavailable Chris Reyna MD Primary Care Physician Unavailable Payers Type Date Identification Numbers Payment Provider Subscriber Health Maintenance Effective: Policy Number: [employer] Nap Edvin Bates [facility] (O) 10/12/2007 [id number] Group Number: [id number] [address] PayID: [id number] [place] [address] Commercial Policy Number: [id number] Insurance Change Robin Bates Group Number: [id number] PayID: [id number] Problems Description No Information Family History Date Family Member(s) Problem(s) Comments Father Allergies Mother Allergies First Daughter Unremarkable First Sister Asthma, Allergies Social History Type Date Description Comments Education Highest level of education completed is 9th grade Has Ged Living Situation currently lives with her parents Diet Diet is healthy and well balanced Occupation [employer] Cigarette Use Current Cigarette Smoker 1/2 Pack Daily ETOH Use Rare Recreational Drug Use Denies Drug Use Daily Caffeine Some Caffeine Exercise Type/Frequency Current Exercises regularly Currently Active The patient is currently sexually active Age 3st [place] First intercourse was at age 19 # Partners in a Lifetime The patient has had 3 sexual partners Allergies, Adverse Reactions, Alerts Date Description Reaction Status Severity Comments 11/06/2011 NKDA active Medications Medication Date Status Form Strength Qnty SIG Indications Ordering Provider Prochlorperazine 06/22 Active Suppository 25mg 12uni 1/2 to 1 J06.9 Jaimee De Souza /Lindsey ts suppositor marianela Spear.DKaur rectum 3-4 times daily as needed Benzonatate 06/22 Active Capsules 100mg 60cap 1 capsule J06.9 Jaimee LKaur s by mouth Beatris, twice M.DKaur daily for cough Work Excuse 06/22 Active off work J06.9 Jaimee L. 06/22-09/28 Kaur Spear M.D. Medical excuse Naprosyn 01/13 Active Tablets 375mg 20tab 1 by mouth Chris Dawkins s twice a Maribell, day with M.DKaur meals Proventil HFA 06/19 Active Aerosol 108(90Bas 1unit 2 puffs J45.909 Jaimee LKaur e) s every 4 afsaneh Spear/Act hours as M.DKaur needed Omeprazole Active Capsules DR 20mg 1 by mouth Unknown /0000 every day Paragard Active IUD T380a Unknown Intrauterine /0000 Copper Contraceptive T380a Work Excuse 01/13 Hx unabLE to Chris Dawkins Eitan work due Maribell, - to Anuel 06/22 injury Thursday first Nitrofurantoin 04/18 Hx Capsules 100mg 10cap 1 by mouth R30.0 Pamela Monohyd Macro /2015 s twice a SOHEILA Hameed - day for 04/23 five days /2015 Monistat 7 Simply 04/18 Hx Cream 2% 1Pack apply one N76.0 Pamela Cure /2015 applicator SOHEILA Hameed - ful into 04/25 vagina nightly x 7 nights Amoxicillin 06/07 Hx Capsules 500mg 20cap 1 by mouth 462 s twice a Odette - day x 10d [employer] 04/18 Note For Work 06/07 Hx Robin was 462 Kim /2014 seen by me Vaughan, - today for [employer] 04/18 illness and may not return to work until Thursday, 8\\29\\15 Omeprazole 04/[address] 20mg 30cap 1 by mouth 787.01 s every day Odette, - [employer] 04/18 Zofran Odt 12/23 Hx Tablets 4mg 60tab 1-2 tab q Dispers s 4-6h prn Odette, - nausea february [employer] 06/19 fill with generic Azithromycin 11/06 Hx Tablets 250mg 12tab take 2 462 s tablets by Odette, - mouth x [employer] 02/11 3d take 1 tablet daily for next 6 days Zithromax 02/07 Hx Tablets 500mg 2tabs 2 po once Odette, - [employer] 11/06 Levaquin 01/27 Hx Tablets 500mg 14tab 1 po qd x 599.0 s 14 days Odette, - [employer] 01/27 Doxycycline 01/27 Hx Capsules 100mg 28cap 1 po bid 599.0 Kim Hycl s Odette, - [employer] 11/06 Metronidazole 01/27 Hx Tablets 500mg 28tab 1 po bid x 599.0 s 14d Odette, - [employer] 11/06 Rocephin 01/27 Hx Solution 250mg given Im 599.0 Rec Odette, - [employer] 02/05 Robitussin A-C 12/06 Hx 120ml 1-2 tsp po Crow T. q4h prn Hattie, - cough M.D. 01/27 Work Note 12/06 Hx no work Crow T. 12/06-12/08 Hattie, - due to M.D. 01/27 illness Tri-Sprintec 11/01 Hx Tablets 0.18/0.21 1pk take one V25.09 5/0.25 tablet by Odette, - mg-3 mouth one [facility] 04/26 time daily V72.31 Proventil 10/16/2010 - Hx Aerosol 108(90Base) 1units 2 puffs q 493.90 Kim HFA 06/19/2014 mcg/ac 4 hrs prn STAR Vaughan Astepro 10/16/2010 - Hx Solution 0.15% 1units 2 sprays 493.90 Goldie 10/25/2010 ea nosameena Anand, qd [employer] Out Of Work 10/16/2010 - Hx out of 381.81 Goldie 10/22/2010 work Cheng, yesterday Afnp-C due to illness Clarinex 08/12/2010 - Hx Tablets 5mg 30tabs 1 po qd 782.1 Kim 10/16/2010 STAR Vaughan Physical 07/23/2010 - Hx evaluate/t 717.3 Jaimee De Souza Therapy 08/12/2010 jesús Spear M.D. Right knee pain. medical meniscus injury Seen At The 07/23/2010 - Hx 717.3 Jaimee De Souza Doctor's 08/12/2010 Casandra Spear M.D. Today. Note For 07/04/2010 - Hx patient Camryn Grover Patient 08/12/2010 was [place] diagnosed M.DKaur with strep throat 07/01/10. She is currently being treated. Cephalexin 07/01/2010 - Hx Capsules 500mg 20caps 1 po Bid 462 Camryn UmanzorKaur 07/23/2010 Anuel Abdi Bactrim DS 05/17/2010 - Hx Tablets 800-160mg 10tabs 1 po bid Camryn UmanzorKaur 06/18/2010 for 5 days Anuel Abdi Nicotine 05/01/2010 - Hx Patches 24HR 21mg/24HR 28units apply 305.1 Camryn Umanzor. 08/12/2010 daily to karel Abdi, february Anuel remove at hs, use each dose for 4 weeks Nicotine 05/01/2010 - Hx Patches 24HR 14mg/24HR 28units apply to 305.1 Camryn Umanzor. [facility]/12/2010 [facility].DK[facility] morning and remove at bedtime Nicotine 05/01/2010 - Hx Patches 24HR 7mg/24HR 28units apply to 305.1 Camryn Umanzor. 08/12/2010 [facility] M.DKaur morning and remove at bedtime Depo-Provera 05/01/2010 - Hx Suspension 150mg/ml 1ml 150 mg im V25.09 Camryn UmanzorKaur 11/01/2010 q 3 months Anuel Abdi Cephalexin 02/05/2010 - Hx Capsules 500mg 20caps 1 po Bid Crow Velásquez 05/01/2010 Anuel Kuhn Prilosec OTC - Hx Tablets DR 20mg 30tabs 1 by mouth Chris Dawkins 06/22/2018 every day Anuel Reyna Medications Administered in Office Medication Date Status Form Strength Qnty SIG Indications Ordering Provider Injection 01/27/ Administered Injection Kim Rocephrin 250 MG 2010 Odette, COMMOD[employer] Injection 01/27/ Administered Injection Kim Subcutaneous Or 2010 Odette, Intramuscular [employer] Injection 08/01/ Administered Injection Camryn M. Subcutaneous Or 2009 LaFace, Intramuscular M.D. Injection 05/01/ Administered Injection Camryn M. Subcutaneous Or 2009 LaFace, Intramuscular M.D. Immunizations CPT Code Status Date Vaccine Lot # [id number] Given 08/02/2008 Tdap Tetanus, W Pertussis [id number] 11794 Given 01/01/1999 Hep A Ped 2-Dose Immunization 87227 Given 05/17/1998 Hep A Ped 2-Dose Immunization 95459 Given 01/30/1997 (IPV) Inactive Poliovirus Vaccine 29255 Given 01/30/1997 MMR Virus Immunization 95501 Given 01/30/1997 DTaP Immunization 67610 Given 07/16/1995 Hepatitis B Immunization, -19 Years 34455 Given 01/13/1995 Hepatitis B Immunization, -19 Years 95468 Given 01/13/1995 DTaP Immunization 20414 Given 10/30/1994 Hepatitis B Immunization, -19 Years 10109 Given 05/28/1994 (Hib) Hemoplilus Influenza B 40532 Given 05/28/1994 DTaP Immunization 17657 Given 05/28/1994 MMR Virus Immunization 45899 Given 05/28/1994 (IPV) Inactive Poliovirus Vaccine 27061 Given 05/29/1993 (IPV) Inactive Poliovirus Vaccine 16571 Given 05/29/1993 DTaP Immunization 75260 Given 05/29/1993 (Hib) Hemoplilus Influenza B 74795 Given 02/28/1993 (IPV) Inactive Poliovirus Vaccine 73924 Given 02/28/1993 DTaP Immunization 57111 Given 02/28/1993 (Hib) Hemoplilus Influenza B Vital Signs Date Vital Result Comment 07/20/2018 BP Systolic 112 mmHg BP Diastolic 86 mmHg Heart Rate 96 /min Body Temperature 99.2 F Respiratory Rate 16 /min O2 % BldC Oximetry 92 % Ra Height 67 inches Weight 126.00 lb BMI (Body Mass Index) 19.7 kg/m2 06/22/2018 BP Systolic 118 mmHg BP Diastolic 82 mmHg Heart Rate 72 /min Body Temperature 98.8 F Height 67 inches 5'7" Weight 130.12 lb BMI (Body Mass Index) 20.4 kg/m2 01/13/2017 BP Systolic 100 mmHg BP Diastolic 70 mmHg Heart Rate 60 /min Body Temperature 98.4 F Respiratory Rate 16 /min Height 67 inches 5'7" Weight 127.00 lb BMI (Body Mass Index) 19.9 kg/m2 04/18/2016 BP Systolic 100 mmHg BP Diastolic 70 mmHg Heart Rate 60 /min Body Temperature 98.1 F Respiratory Rate 16 /min Height 67 inches 5'7" Weight 144.00 lb BMI (Body Mass Index) 22.6 kg/m2 06/07/2015 BP Systolic 122 mmHg BP Diastolic 90 mmHg Heart Rate 78 /min Body Temperature 98.4 F Respiratory Rate 16 /min Height 67 inches 5'7" Weight 117.12 lb BMI (Body Mass Index) 18.3 kg/m2 04/26/2015 BP Systolic 110 mmHg BP Diastolic 70 mmHg Heart Rate 68 /min Body Temperature 97.8 F Respiratory Rate 16 /min Weight 117.00 lb 06/19/2014 BP Systolic 90 mmHg BP Diastolic 70 mmHg Heart Rate 76 /min Body Temperature 99.3 F Respiratory Rate 18 /min Height 67 inches 5'7" Weight 113.00 lb BMI (Body Mass Index) 17.7 kg/m2 12/22/2013 BP Systolic 90 mmHg BP Diastolic 60 mmHg Heart Rate 92 /min Body Temperature 99.6 F Respiratory Rate 16 /min Height 67 inches 5'7" Weight 119.25 lb BMI (Body Mass Index) 18.7 kg/m2 02/12/2012 BP Systolic 100 mmHg BP Diastolic 70 mmHg Heart Rate 72 /min Body Temperature 98.2 F Height 67 inches 5'7" Weight 122.00 lb BMI (Body Mass Index) 19.1 kg/m2 11/06/2011 BP Systolic 94 mmHg BP Diastolic 62 mmHg Heart Rate 68 /min Body Temperature 99.0 F Height 67 inches 5'7" Weight 124.00 lb BMI (Body Mass Index) 19.4 kg/m2 Body Mass Index Percentile 21 % Weight Percentile 45th Height Percentile 85 % 02/05/2011 BP Systolic 90 mmHg BP Diastolic 60 mmHg Heart Rate 76 /min Body Temperature 97.5 F Respiratory Rate 24 /min Height 67 inches 5'7" Weight 128.00 lb BMI (Body Mass Index) 20.0 kg/m2 Body Mass Index Percentile 32 % Weight Percentile 57th Height Percentile 86 % 01/27/2011 BP Systolic 100 mmHg BP Diastolic 70 mmHg Heart Rate 80 /min Body Temperature 98.6 F Height 67 inches 5'7" Weight 128.00 lb BMI (Body Mass Index) 20.0 kg/m2 Body Mass Index Percentile 32 % Weight Percentile 57th Height Percentile 86 % 12/06/2010 BP Systolic 100 mmHg BP Diastolic 60 mmHg Heart Rate 68 /min Body Temperature 100.6 F Respiratory Rate 15 /min Height 67 inches 5'7" Weight 130.00 lb BMI (Body Mass Index) 20.4 kg/m2 Body Mass Index Percentile 37 % Weight Percentile 61st Height Percentile 86 % 11/01/2010 BP Systolic 106 mmHg BP Diastolic 68 mmHg Heart Rate 76 /min Body Temperature 98.5 F Respiratory Rate 16 /min Height 67 inches 5'7" Weight 133.00 lb BMI (Body Mass Index) 20.8 kg/m2 Body Mass Index Percentile 44 % Weight Percentile 66th Height Percentile 86 % 10/16/2010 BP Systolic 100 mmHg BP Diastolic 80 mmHg Heart Rate 68 /min Body Temperature 98.6 F Height 67 inches 5'7" Weight 131.00 lb BMI (Body Mass Index) 20.5 kg/m2 Body Mass Index Percentile 40 % Weight Percentile 63rd Height Percentile 86 % 08/12/2010 BP Systolic 92 mmHg BP Diastolic 62 mmHg Heart Rate 80 /min Body Temperature 97.4 F Height 67 inches 5'7" Weight 123.00 lb BMI (Body Mass Index) 19.3 kg/m2 Body Mass Index Percentile 23 % Weight Percentile 49th Height Percentile 86 % 07/23/2010 BP Systolic 100 mmHg BP Diastolic 60 mmHg Heart Rate 68 /min Body Temperature 98.6 F Respiratory Rate 15 /min Height 67 inches 5'7" Weight 126.00 lb BMI (Body Mass Index) 19.7 kg/m2 Body Mass Index Percentile 30 % Weight Percentile 55th Height Percentile 86 % 07/01/2010 BP Systolic 90 mmHg BP Diastolic 64 mmHg Heart Rate 78 /min Body Temperature 99.5 F Height 67 inches 5'7" Weight 126.00 lb BMI (Body Mass Index) 19.7 kg/m2 Body Mass Index Percentile 31 % Weight Percentile 56th Height Percentile 86 % 06/18/2010 BP Systolic 86 mmHg BP Diastolic 60 mmHg Heart Rate 78 /min Body Temperature 99.0 F Height 67 inches 5'7" Weight 121.00 lb BMI (Body Mass Index) 18.9 kg/m2 Body Mass Index Percentile 20 % Weight Percentile 46th Height Percentile 86 % 05/01/2010 BP Systolic 102 mmHg BP Diastolic 64 mmHg Heart Rate 84 /min Height 67 inches 5'7" Weight 126.00 lb BMI (Body Mass Index) 19.7 kg/m2 Body Mass Index Percentile 31 % Weight Percentile 56th Height Percentile 86 % 02/05/2010 BP Systolic 98 mmHg BP Diastolic 60 mmHg Heart Rate 80 /min Body Temperature 99.1 F Height 67 inches 5'7" Weight 126.00 lb BMI (Body Mass Index) 19.7 kg/m2 Body Mass Index Percentile 33 % Weight Percentile 57th Height Percentile 86 % 10/17/2009 BP Systolic 104 mmHg BP Diastolic 70 mmHg Heart Rate 72 /min Respiratory Rate 16 /min Height 67 inches 5'7" Weight 126.00 lb BMI (Body Mass Index) 19.7 kg/m2 Body Mass Index Percentile 34 % Weight Percentile 59th Height Percentile 86 % 10/03/2009 BP Systolic 90 mmHg BP Diastolic 54 mmHg Heart Rate 64 /min Weight 126.00 lb Weight Percentile 59th 08/02/2008 BP Systolic 92 mmHg BP Diastolic 50 mmHg Body Temperature 98.6 F Height 67 inches 5'7" Weight 132.00 lb BMI (Body Mass Index) 20.7 kg/m2 Body Mass Index Percentile 55 % Weight Percentile 74th Height Percentile 88 % Results Test Date Test Result H/L Range Note Influenza A&B-fma 06/22/2018 Influenza A negative Influenza B negative Laboratory test 06/22/2018 Quickstrep negative Negative finding Laboratory test 02/15/2018 Gardnerella/Yeast: SEE RESULT BELOW 1, 2 finding Vaginal Dna GC/Chlamydia 02/15/2018 Chlamydia trachomatis Negative Negative 1 Amplified Rna Rna Neisseria gonorrhoeae (GC) Rna Negative Negative 1 Laboratory test finding 02/15/2018 Trichomonas vaginalis Negative Negative 1, 3 Rna Laboratory test finding 06/05/2016 Rupture of Membranes Negative 4 Ua - Micro (Fma) 04/18/2016 Appearance CLEAR Color YELLOW Glucose, Urine (Fma/CMC/CTX) NEG Bilirubin NEG Ketones NEG SP Grav 1.025 Blood NEG PH 7.5 Protein NEG Urobil 2.0 Nitrite NEG Leukocytes (Fma/CMC/Centrex) SMALL Hyaline - /Lpf Granular - /Lpf WBC (Fma,Centrex) 10-15 RBC 0-1 Mucus - /Lpf Epith OCC /Lpf Bacteria TRACE /Hpf Amorphous MOD AMT /Lpf Crystals, Fluid (Fma/CMC/CTX) - Z#Comments - Laboratory test finding 04/18/2016 Urine Culture And SEE RESULT BELOW 5 Sensitivities Gardnerella/Yeast: Vaginal Dna SEE RESULT BELOW 6 Laboratory test 11/18/2015 Urine Culture And SEE RESULT BELOW 7 finding Sensitivities Laboratory test 06/07/2015 Quickstrep negative Negative finding Throat - Beta Strep Fma NEG @ 48 HRS Complete Blood Count 04/26/2015 WBC 7.4 x10^3/UL 3.6-9.6 RBC 4.43 x10^6/UL 3.90-5.70 HGB 12.6 g/dL 12.1-17.2 HCT 37 % 36-50 MCV 84.0 fL 82.2-97.4 MCH 28.4 pg 27.6-33.3 MCHC 33.7 g/dL 33.0-35.5 RDW 13.6 % 11.6-13.7 PLT 222 x10^3/UL 150-400 MPV 7.3 fL Low 7.4-10.4 Gran # 4.3 x10^3/UL 1.5-7.2 Lymph# 2.7 x10^3/UL 0.7-4.9 Rawlins# 0.4 x10^3/UL 0.1-0.9 Gran % 55.9 % 42.2-75.2 Lymph % 37.5 % 20.5-51.1 Rawlins% 6.6 % 1.7-9.3 Ua - Non Micro (Fma) 04/26/2015 Appearance yellow Color clear Glucose, Urine (Fma/CMC/CTX) neg Bilirubin neg Ketones neg SP Grav 1.020 Blood neg PH 5.5 Protein neg Urobil 0.2 Nitrite neg Leukocytes (Fma/CMC/Centrex) neg Laboratory test finding 04/26/2015 TSH 0.61 mIU/L 0.50-6.00 Comprehensive Metabolic Prof 04/26/2015 Sodium 134 mEq/L 134-149 Potassium 4.0 mEq/L 3.6-5.5 Chloride 99 mEq/L 94-112 Carbon Dioxide 25 mEq/L 21-32 Glucose 90 mg/dL 70-105 BUN 20 mg/dL 6-26 Creatinine 0.7 mg/dL 0.6-1.4 BUN/Creat Ratio 28.6 CALC 8.0-36.0 Calcium 9.0 mg/dL 8.6-10.2 Total Protein 6.9 g/dL 6.4-8.3 Albumin 4.4 g/dL 3.8-5.5 Globulin 2.5 g/dL 2.0-4.8 A/G Ratio 1.8 CALC 0.6-2.3 Alk. Phosphatase 40 U/L 30-110 Alt (SGPT) 11 U/L 7-35 Ast (Sgot) 19 U/L 5-34 Total Bilirubin 1.0 mg/dL 0.2-1.3 CBC Electronic ([facility]) 06/19/2014 WBC 6.8 3.6-9.6 RBC 4.94 3.90-5.70 Hemoglobin (Fma/CMC/CTX) 13.8 g/dL 12.1 - 17.2 Hematocrit (Fma/CMC/CTX) 41.0 % 36.1 - 50.3 Platelets 228 10^3/ul 150-400 Lymph% 37.1 % 17.0-48.0 Mixed% 4.6 Neutrophils % 58.3 Mean Corpuscular Vol 83 82.2-97.4 Mean Corpuscular Hemoglobin 27.9 27.6-33.3 Mean Corpuscular Hemo Concen 33.6 32.0-36.0 RDW 13.4 11.6-13.7 Mean Platelet Volume 7.7 5.5-11.0 Laboratory test finding 06/19/2014 TSH 1.09 mIU/L 0.50-6.00 Comprehensive Metabolic Prof 06/19/2014 Sodium 141 mEq/L 134-149 Potassium 4.5 mEq/L 3.6-5.5 Chloride 100 mEq/L 94-112 Carbon Dioxide 25 mEq/L 21-32 Glucose 80 mg/dL 70-105 BUN 19 mg/dL 6-26 Creatinine 0.8 mg/dL 0.6-1.4 BUN/Creat Ratio 23.8 CALC 8.0-36.0 Calcium 10.2 mg/dL 8.6-10.2 Total Protein 8.0 g/dL 6.3-8.1 Albumin 4.6 g/dL 3.8-5.5 Globulin 3.4 g/dL 2.0-4.8 A/G Ratio 1.4 CALC 0.6-2.3 Alk. Phosphatase 52 U/L 30-110 Alt (SGPT) 14 U/L 7-35 Ast (Sgot) 21 U/L 5-34 Total Bilirubin 0.8 mg/dL 0.2-1.3 Urine (Fma) 12/22/2013 SP Grav 1.020 Urine, (Fma/CMC/CTX) pos Laboratory test 12/22/2013 Beta HCG Quantitative 16379.00 IU/mL High 0.0- 5.0 8 finding Laboratory test 02/12/2012 Thin Prep SEE NOTE 9 finding W/HPV(Lsil/ANNAMARIE/Asc) Ua - Non Micro (a) 02/12/2012 Appearance CLEAR Color YELLOW Glucose NEG Bilirubin NEG Ketones TRACE SP Grav >=1.030 Blood NEG PH 6.0 Protein NEG Urobil 0.2 Nitrite NEG Leukocytes (Fma/CMC/Centrex) NEG Laboratory test finding 11/06/2011 Quickstrep NEG Negative Throat - Beta Strep a NEG @ 48 HRS Type & Screen 04/08/2011 Patient Blood Type O POSITIVE Antibody Screen NEGATIVE CBC Auto Diff 04/08/2011 White Blood Count 5.9 CUMM 4.8-10.8 Red Cell Count 4.52 CUMM 4.2-5.4 Hemoglobin 12.5 g/dL 12.0-16.0 Hematocrit 38 % 35-47 Mean Corpuscular Volume 83 um3 79-97 Mean Corpuscular Hemoglob 28 pg 27-31 Mean Corpuscular HGB Cone 33 g/dL 32-36 Redcell Distribution WDTH 13 % 10.5-15 Platelet Count 161 CUMM 150-450 Mean Platelet Volume 9.1 um3 7.4-10.4 Gran % 79.1 % 38-83 Lymph % 8.9 % Low 25-47 Mononuclear % 10.3 % High 1-9 Eosinophil % 0.8 % 0-6 Basophil % 0.9 % 0-2 Abs Lymphs 0.5 Low 1.0-4.8 Abs Mononuclear 0.6 0-0.8 Absolute Neutrophil Count 4.7 1.5-7.7 Abs Eosinophils 0 0-0.6 Abs Basophils 0.1 0-0.2 10 Laboratory test 04/08/2011 (HCG) NEGATIVE Negative 11 finding Serum GC/Chlamydia Probe 02/05/2011 Chlamydia POSITIVEConfirme <SEE 12 Or Urine(Ce Amplified Probe NOTE> GC Amplified Probe NEGATIVE Anti Viral AB Screen 01/27/2011 HIV 1/O/2 Abs-Index Value <1.00 <1.00 13 , 14 HIV 1/O/2 Abs, Qual Non Reactive 13, 15 Hep C Abs 01/27/2011 Hep C Antibody NON-REACTIVE Non-Reactive 13 Hep C S/Co Ratio 0.0 0.0-0.7 13 Laboratory test 01/27/2011 RPR NON-REACTIVE Non-Reactive 13 finding GC/Chlamydia 01/27/2011 Chlamydia POSITIVEConfirme <SEE 13, 16 Probe Or Amplified Probe NOTE> Urine(Ce GC Amplified Probe NEGATIVE 13 Ua - Micro (Fma) 01/27/2011 Appearance CLOUDY Color YELLOW Glucose NEG Bilirubin NEG Ketones NEG SP Grav 1.020 Blood NEG PH 7.5 Protein NEG Urobil 1.0 Nitrite NEG Leukocytes (Fma/CMC/Centrex) SMALL Hyaline - /Lpf Granular - /Lpf WBC (Fma,Centrex) TNTC RBC 2-5 Mucus MODERATE /Lpf Epith MANY /Lpf Bacteria 4+ /Hpf Amorphous - /Lpf Crystals, Fluid (Fma/CMC/CTX) - Z#Comments - 17 Laboratory test finding 01/27/2011 Quickstrep NEGATIVE Negative Throat - Beta Strep Fma NEG @ 48 HRS Influenza A&B 12/06/2010 Influenza A NEGATIVE Influenza B NEGATIVE CBC (Fma) 08/12/2010 WBC 7.1 3.6-9.6 RBC 4.50 3.90-5.70 Hemoglobin (Fma/CMC/CTX) 12.1 g/dL 12.1 - 17.2 Hematocrit (Fma/CMC/CTX) 36.3 % 36.1 - 50.3 Platelets 322 10^3/ul 150-400 Lymph% 32.0 20.5-51.1 Mixed% 5.5 Neutrophils % 62.5 Mean Corpuscular Vol 81 Low 82.2-97.4 Mean Corpuscular Hemoglobin 27.0 Low 27.6-33.3 Mean Corpuscular Hemo Concen 33.4 33.0-36.0 RDW 13.3 11.6-13.7 Mean Platelet Volume 7.8 7.4-10.4 PT (No 08/12/2010 PT (No 13.3 seconds 11.7-14.5 18, 19 Therapy/Unknown) Therapy/Unknown) Inr 1.0 18, 20 Comprehensive Metabolic Prof 08/12/2010 Albumin 4.6 g/dL 3.8-5.5 Alk. Phos. 55 U/L 30-110 Alt (SGPT) 13 U/L 7-35 Ast (Sgot) 20 U/L 5-34 BUN 17 mg/dL 6-26 Calcium 9.9 mg/dL 8.6-10.2 Chloride 103 mEq/L 94-112 Creatinine 0.7 mg/dL 0.6-1.4 Carbon Dioxide 23 mEq/L 21-32 Glucose 100 mg/dL 70-105 Sodium 142 mEq/L 134-149 Total Bilirubin 0.6 mg/dL 0.2-1.3 Total Protein 7.2 g/dL 6.3-8.1 Potassium 4.3 mEq/L 3.6-5.5 Globulin 2.6 g/dL 2.0-4.8 A/G Ratio 1.8 Calc 0.6-2.2 BUN/Creat Ratio 22.5 Calc 8.0-36.0 Laboratory test finding 08/12/2010 TSH 1.62 mIU/L 0.50-6.00 Laboratory test finding 07/01/2010 Quickstrep positive Negative Laboratory test finding 07/01/2010 Surgical Pathology SEE NOTE 21 Urine (Fma) 05/15/2010 SP Grav >=1.030 Urine, (Fma/CMC/CTX) NEGATIVE Ua - Micro (Fma) 05/15/2010 Appearance CLEAR Color YELLOW Glucose NEG Bilirubin NEG Ketones TRACE SP Grav >1.030 Blood TRACE PH 5.5 Protein NEG Urobil 0.2 Nitrite POSITIVE Leukocytes (Fma/CMC/Centrex) TRACE Hyaline - /Lpf Granular - /Lpf WBC (Fma,Centrex) 8-10 RBC 3-5 Mucus - /Lpf Epith FEW /Lpf Bacteria 4+ /Hpf Amorphous - /Lpf Crystals, Fluid (Fma/CMC/CTX) - Z#Comments - Laboratory test finding 05/15/2010 Urine Culture Escherichia coli 22 GC/Chlamydia Probe Or 05/01/2010 Chlamydia Amplified NEGATIVE Urine(Centrex) Probe GC Amplified Probe NEGATIVE Laboratory test finding 05/01/2010 Thin Prep W/HPV(Lsil/ANNAMARIE/Asc) SEE NOTE 23 Ua - Non Micro (a) 05/01/2010 Appearance CLEAR Color YELLOW Glucose NEG Bilirubin NEG Ketones TRACE SP Grav 1.025 Blood NEG PH 5.5 Protein NEG Urobil 0.2 E.U./dL Nitrite NEG Leukocytes (Fma/[facility]/Centrex) NEG Urine (Fma) 05/01/2010 SP Grav 1.025 Urine, (Fma/[facility]/CTX) NEGATIVE Laboratory test finding 02/05/2010 Throat - Beta Strep Fma positive 1 Would you like to order Trichomonas Vaginalis RNA testing? Y 2 SEE RESULT BELOW Name: ROBIN BATES : [address]: Minerva Cain MD Acct: [id number] Unit: [id number] AGE: 27 Location: ED Re02/15/18 SEX: F Status: DEP ER SPEC: [id number] KELSIE: 02/15/[address] [facility] [address]: Stephania PINK REQ: [id number] RECD: 02/15/18 STATUS: MORTEZA BRIAN DR: Minerva Vaughan MANAGER [employer] _ SOURCE: VAGINAL SPDESC: ORDERED: Mike,Yeast DNA COMMENTS: Would you like to order Trichomonas Vaginalis RNA testing? Y Procedure Result Reported Site Gardnerella/Yeast: Vaginal DNA Final 02/15/18- 1353 ML Organism 1 POSITIVE GARDNERELLA Organism 2 Negative Penny The presence of G. vaginalis, although suggestive, [...] therapeutic success or failure. * ML - Main Lab . END OF REPORT DEPARTMENT OF PATHOLOGY, [address] [place] [address] Ko Cox M.D. Director [facility] # [id number] 3 GC/Chlamydia Source?: Endocervical Trichomonas Source: Endocervical 4 A NEGATIVE results indicates there is no evidence of membrane rupture. 5 SEE RESULT BELOW Name: ROBIN BATES : [address]: Pamela Hameed [facility] Acct: [id number] Unit: [id number] AGE: 25 Location: [facility] Re04/18/16 SEX: F Status: REG REF SPEC: [id number] KELSIE: 04/18/[address] [facility] [address]: Pamela Hameed [facility] REQ: [id number] RECD: 04/18/16 STATUS: COMP _ SOURCE: URINE SPDESC: ORDERED: Urine Culture COMMENTS: [facility] [id number] 1 randolph urine vacutainer 1 affirm Procedure Result Reported Site Urine Culture Final 04/19/16- 1517 ML No Growth (<1,000 CFU/mL) * ML - [facility] ([facility]) . END OF REPORT * ML=Testing performed at Main Lab DEPARTMENT OF PATHOLOGY, [address] [place] [address] Ko Cox M.D. Director [facility] # [id number] 6 SEE RESULT BELOW Name: PAULOROBIN : [address]: Pamela GRAVES Acct: [id number] Unit: [id number] AGE: 25 Location: [facility] Re04/18/16 SEX: F Status: REG REF SPEC: [id number] KELSIE: 04/18/16-[address] [facility] [address]: Pamela FOWLERP REQ: [id number] RECD: 04/18/161845 STATUS: COMP _ SOURCE: VAGINAL SPDESC: ORDERED: Mike,Yeast DNA, Trich DNA COMMENTS: [facility] [id number] 1 randolph urine vacutainer 1 affirm Procedure Result Reported Site Gardnerella/Yeast: Vaginal DNA Final 04/19/16- 1050 ML Organism 1 Negative Gardnerella Organism 2 Negative Penny The presence of G. vaginalis, although suggestive, [...] a test for therapeutic success or failure. CONTINUED ON NEXT PAGE * ML=Testing performed at Main Lab DEPARTMENT OF PATHOLOGY, [address] [place] [address] Ko Cox M.D. Director [facility] # [id number] Patient: ROBIN BATES [id number] (Continued) Specimen: [id number] Collected: 04/18/16 Received: 04/18/16 (Continued) Procedure Result Reported Site Gardnerella/Yeast: Vaginal DNA Final (continued) 04/19/16- 1049 Trichomonas: Vaginal DNA Probe Final 04/19/16- 1049 ML Organism 1 Negative Trichomonas The presence or absence of T. vaginalis cannot be used as a test for therapeutic success or failure. * ML - MAIN LAB ([facility]) . END OF REPORT * ML=Testing performed at Main Lab DEPARTMENT OF PATHOLOGY, [address] [place] [address] Ko Cox M.D. Director [facility] # [id number] 7 SEE RESULT BELOW Name: ROBIN BATES : [address]: Cecile Weiss MD Acct: [id number] Unit: [id number] AGE: 24 Location: [facility] Re11/18/15 SEX: F Status: DEP ER SPEC: [id number] KELSIE: 11/18/15-[address] [facility] [address]: Cecile Weiss MD REQ: [id number] RECD: 11/19/15 STATUS: MORTEZA BRIAN DR: [facility] Kim Vaughan MANAGER BUSINESS OPERATIONS _ SOURCE: URINE SPDESC: ORDERED: Urine Culture Procedure Result Reported Site Urine Culture Final 11/20/15- 912 ML No Growth (<1,000 CFU/mL) * ML - MAIN LAB ([facility]) . END OF REPORT * ML=Testing performed at Main Lab DEPARTMENT OF PATHOLOGY, [address] [place] [address] Ko Cox M.D. Director [facility] # [id number] 8 <5.0 Negative 5.0 - 25.0 Indeterminate >25.0 Positive 9 [facility] [employer] DEPARTMENT OF PATHOLOGY or Extension 0528 COMBINED HPV / JUNIOR ELECTRICAL ENGINEER CYTOLOGY REPORT PATIENT: ROBIN BATES : 1990 AGE: 21 Y SEX: F ACCT: [id number] PROCEDURE DATE: 02/12/2012 DATE RECEIVED: 02/13/2012 REQUESTING PHYSICIAN: LARISSA VAUGHAN CNP-F LOCATION: [facility] [place] Case No. [id number] PATIENT DATA: [id number] SPECIMEN SUBMITTED: * * (HPVII) THIN PREP W/HPV (LSIL/ASC/ANNAMARIE) * * CERVICAL/ENDOCERVICAL RELEVANT HISTORY: LMP: 01/30/2012 Contraceptive: ORAL B/C Menarche: Y Prev.normal: 04/2010 SPECIMEN ADEQUACY SATISFACTORY FOR EVALUATION, ENDOCERVICAL TRANSFORMATION ZONE COMPONENT PRESENT GENERAL CATEGORIZATION EPITHELIAL CELL ABNORMALITY: SEE "INTERPRETATION/RESULT" INTERPRETATION/ RESULT ATYPICAL SQUAMOUS CELLS OF UNDETERMINED SIGNIFICANCE. ICD-9 DIAGNOSIS CODE 795.01 RECOMMENDATIONS See Related Reference Test Result below. See www.asccp.org and articles in Am J of Obstet Gynecol 2007 Jul; 197(4), for current consensus recommendation guidelines. COMMENTS Thin Prep Pap tests are examined with an FDA approved location-guidance system. RELATED REFERENCE TEST RESULT: HPV: "HIGH RISK" Source: Cervical Result: POSITIVE Test Method: Low Volume rfx Performing Location: 02 METHODOLOGY: HPV high risk is performed with the FDA approved Digene HC2 method whenever the specimen is cellular enough and the quantity of sample remaining in the vial after Thin Prep PAP slide preparation equals or greater than 4 ml. In cases of smaller sample (0.5 to 3.9 ml) the HPV high risk testing will be performed with Low Volume rfx. ( RN) Digene Hybrid Capture (HC2). FDA approved and detects 13 "high risk" HPV types (16/18/31/33/35/39/45/51/52/56/58/59/68) without differentiation. ( BN) Low Volume rfx detects fourteen "high risk" HPV types (16/18/31/33/35/39/45/51/52/56/58/59/66/68) without differentiation. ADDITIONAL COPIES SENT TO: Screened/Rescreened Electronically Signed Sign Out Date/Time: by: by: ALMA DON, 02/23/2012 18:04 PATHOLOGIST Note: The Pap smear is a screening test designed to aid in the detection of premalignant and malignant conditions of the uterine cervix. It is not a diagnostic procedure and should not be used as the sole means of detecting cervical cancer. Both false-positive and false-negative reports do occur. 00 UA Pap Smear performed at [place] Dir: Shannan Ferrer MD, [address] [facility] [address] 01 [employer]water [employer] [facility] [place] Dir: Augustus Ayon MD, [address] [facility] [phone] 02 BN [facility] [place] Dir: Efrain Spangler MD, [address] [place] [phone] For inquiries regarding HPV test results, the physician may contact [facility]: [phone] "" 10 Lymphopenia % 11 If is still suspected, please repeat test after 48 to 72 hours. . 12 POSITIVE Confirmed on re-assay. 13 3 ssts; 1 gen/probe 14 Index Value: Specimen reactivity relative to the negative cutoff. 15 Negative: Non-reactive by ICMA Positive: Repeatedly reactive by ICMA. Refer to Western Blot confirmatory test for final interpretation. . Physician should licensed professional counselor the patient about result significance. Patient information should be kept strictly confidential. 16 POSITIVE Confirmed on re-assay. 17 not clean catch 18 POUR OFF PLASMA FROZEN 19 . 20 INTERNATIONAL NORMALIZED RATIO(INR) INDICATIONS INR RANGE PATIENTS NOT ON ANTICOAGULANT THERAPY * DEEP VENOUS THROMBOSIS 2.0-3.0 PULMONARY EMBOLISM 2.0-3.0 ATRIAL FIBRILLATION 2.0-3.0 PROPHYLAXIS: 2.0-3.0 HIGH-RISK SURGERY TISSUE HEART VALVES ATRIAL FIBRILLATION ACUTE MYOCARDIAL INFARCTION VALVULAR HEART DISEASE MECHANICAL PROSTHETIC VALVE 2.5-3.5 * USE OF INR VALUES SHOULD BE LIMITED TO PATIENTS WHO ARE ON STABLE ORAL ANTICOAGULANT THERAPY. AN INR ABOVE 5.0-5.5 APPEARS TO BE ASSOCIATED WITH AN UNACCEPTABLY HIGH RISK OF BLEEDING. 21 [employer] DEPARTMENT OF PATHOLOGY or Extension 6862 SURGICAL PATHOLOGY REPORT PATIENT: ROBIN BATES : 1990 AGE: 19 Y SEX: F ACCT: [id number] PROCEDURE DATE: 07/01/2010 DATE RECEIVED: 07/02/2010 REQUESTING PHYSICIAN: CHRIS REYNA MD LOCATION: [facility] [place] Case No. [id number] FINAL DIAGNOSIS: SKIN LESION, RIGHT UPPER ARM, EXCISION: CAPILLARY HEMANGIOMA. XA:elaina D/ GROSS DESCRIPTION: Received in formalin labeled Robin Bates, Lab #[id number], consists of an off-white/marrufo-red glistening smooth polypoid papule of skin that is 0.5 x 0.4 x 0.2 cm. The margin is inked black. It is serially sectioned. TS1 AP:elaina D/ CLINICAL DATA: [id number] CONSTANTLY BLEEDING SPECIMEN SUBMITTED: LESION, UPPER RIGHT ARM ADDITIONAL COPIES SENT TO: Electronically Signed by: Signed Date and Time: DIXIE HAMILTON MD PATHOLOGIST 07/03/2010 16:16 ____ Performed @ [facility], [address] [place] [address] 22 Escherichia coli >100,000 col/ml URINE CULTURE organism 1 Escherichia coli >100,000 col/ml Ertapenem <=0.5 mcg/mL Susceptible Amikacin <=2 mcg/mL Susceptible Amoxicillin/CA <=2 mcg/mL Susceptible Ampicillin <=2 mcg/mL Susceptible Aztreonam <=1 mcg/mL Susceptible Cefazolin <=4 mcg/mL Susceptible Ciprofloxacin <=0.25 mcg/mL Susceptible Gentamicin <=1 mcg/mL Susceptible Levofloxacin <=0.12 mcg/mL Susceptible Nitrofurantoin <=16 mcg/mL Susceptible Piperacillin/tazobactam <=4 mcg/mL Susceptible Tetracycline <=1 mcg/mL Susceptible Trimethoprim/Sulfa <=20 mcg/mL Susceptible 23 [employer] DEPARTMENT OF PATHOLOGY or Extension 8229 JUNIOR ELECTRICAL ENGINEER CYTOLOGY REPORT PATIENT: ROBIN BATES : 1990 AGE: 19 Y SEX: F ACCT: [id number] PROCEDURE DATE: 05/01/2010 DATE RECEIVED: 05/02/2010 REQUESTING PHYSICIAN: CAMRYN ABDI MD LOCATION: [facility] [place] Case No. [id number] PATIENT DATA: [id number] SPECIMEN SUBMITTED: * * (HPVII) THIN PREP W/HPV (LSIL/ASC/ANNAMARIE) * * ENDOCERVICAL RELEVANT HISTORY: LMP: 03/12/2010 Menarche: Y Comment: FIRST PAP SPECIMEN ADEQUACY SATISFACTORY FOR EVALUATION, ENDOCERVICAL TRANSFORMATION ZONE COMPONENT PRESENT GENERAL CATEGORIZATION NEGATIVE FOR INTRAEPITHELIAL LESIONS OR MALIGNANCY ADDITIONAL COPIES SENT TO: Screened/Rescreened Electronically Signed Sign Out Date/Time: by: by: ADELE THOMAS, 05/02/2010 17:34 CT(ASCP) Thin Prep Pap tests are examined with an FDA-approved location-guidance system (06320). Performed @ [email or web address], [employer] [address] [place] [address] Procedures Date CPT Code Description Status 01/27/2011 30645 Injection Subcutaneous Or Intramuscular Completed 08/01/2010 01252 Injection Subcutaneous Or Intramuscular Completed 07/01/2010 19101 Shave Skin Lesion <.6CM Trunk/Arm/Leg Completed 05/01/2010 60336 Injection Subcutaneous Or Intramuscular Completed Encounters Type Date Location Provider CPT E/M Dx Office Visit 06/22/2018 9:40a Main Office Jaimee Spear, 48061 J06.9 MKelsey Office Visit 01/13/2017 3:00p [facility] Chris Reyna 99327 M24Erich Agee Office Visit 04/18/2016 2:30p Main Office Pamela Hameed, MANAGER BUSINESS OPERATIONS 86012 N76.0 R30.0 Office Visit 06/07/2015 10:45a [facility] Kim Vaughan, [facility] 22368 462 Office Visit 04/26/2015 3:00p [facility] Pamela Hameed, MANAGER BUSINESS OPERATIONS 55841 780.79 787.01 Office Visit 06/19/2014 7:00p Main Office Pamela Hameed, MANAGER BUSINESS OPERATIONS 64780 780.79 783.21 564.00 493.90 Office Visit 12/22/2013 4:15p [facility] Kim Vaughan, [facility] 13216 787.02 V22.2 Office Visit 02/12/2012 2:15p [facility] Office Kim Vaughan, [facility] 22450 V72.31 493.90 Office Visit 11/06/2011 2:00p [facility] Kim Vaughan, [facility] 66728 462 493.90 Office Visit 02/05/2011 3:30p [facility] Office Kim Vaughan, [facility] 40676 099.41 Office Visit 01/27/2011 3:00p Main Office Kim Vaughan, [facility] 70133 599.0 V73.89 462 Office Visit 12/06/2010 10:10a Main Office Crow Kuhn M.D. 70186 465.9 Office Visit 11/01/2010 9:00a Main Office Kim Vaughan, [facility] 60766 V25.09 Office Visit 10/16/2010 10:15a Main Office Goldie Anand soheila- 51267 381.81 493.90 Office Visit 08/12/2010 2:15p Main Office Kim Vaughan, [facility] 42816 782.1 Office Visit 07/23/2010 3:10p Main Office Jaimee Spear M.D. 98545 717.3 305.1 Office Visit 07/01/2010 2:40p [facility] Camryn Abdi M.D. 88762 238.2 462 228.01 Office Visit 06/18/2010 11:20a Main Office Camrny Abdi M.D. 38367 238.2 V25.09 305.1 Office Visit 05/01/2010 1:00p Main Office Camryn Abdi M.D. 00154 305.1 V25.09 V72.31 Office Visit 02/05/2010 12:10p Main Office Crow Kuhn M.D. 43642 462 Office Visit 10/17/2009 3:10p Main Office Chris Reyna M.D. 91674 789.06 Office Visit 10/03/2009 9:10a Main Office Chris Reyna M.D. 08323 789.06 Office Visit 08/02/2008 11:00a Main Office Kim Dotsonrer, [facility] 75517 V20.2 V06.5 Plan of Care 07/20/2018 - Shanel Guzmán, JANETHPJ06.9 Acute upper respiratory infection, cyycynadweuL55 BtrouN16.2 CdlbypgbH45.02 Shortness of breathAllComments:~B_~U_ Medication Management~b_~u_ Patient Understands medications he 's taking? Yes No Are there Barriers to Adherence? Yes No Has the patient been asked about herbal supplements and therapies, and OTC meds? Yes No As always, we strongly encourage a healthy diet and makingphysical activity a part of your every day life. If you have questions about how or where to start, please contact the office.
[2018-07-20] MEDS ORDERED: Albuterol/Ipratropium NEB.SOL* Albuterol 2.5 MG/Ipratropium 0.5 MG 3 ML ONE (22:54)
[2018-07-20] MEDS ORDERED: Albuterol 2.5 MG/3 ML NEB.SOL* (0.083%) INH ONE ×3 (22:54→23:53)
[2018-07-20] MEDS ORDERED: Albuterol/Ipratropium NEB.SOL* Albuterol 2.5 MG/Ipratropium 0.5 MG 3 ML INH ONE (22:58)
[2018-07-20] MEDS ORDERED: NS 0.9% 1000 ML* 2,000 ML IV ONE (23:47)
[2018-07-20] MEDS ORDERED: Magnesium Sulfate 2 GM IV* 2 GM/50 ML BAG IVPB ONE (23:47)
[2018-07-20] MEDS ORDERED: methylPREDNISolone 125 MG* 2 ML VIAL IV ONE (23:47)
[2018-07-20] MEDS ORDERED: Ketorolac INJ* 30 MG/ML 1 ML VIAL IV PUSH ONE (23:52)
[2018-07-20] MEDS ORDERED: Acetaminophen TAB* 325 MG PO ONE (23:52)
[2018-07-21 00:17] LABS: INR 1.05 (0.77-1.02)
[2018-07-21 00:24] LABS: EGFR Non-African American 100.3 (>60)
[2018-07-21 00:25] LABS: ABS Basophils 0 10^3/ul (0-0.2); ABS Eosinophils 0.1 10^3/ul (0-0.6); ABS Monocytes 0.7 10^3/ul (0-0.8); ABS Neutrophils 6.1 10^3/ul (1.5-7.7); ABS Nucleated RBC 0 10^3/ul; Eosinophil % 0.7 % (0-6); Hematocrit 36 % (35-47); Hemoglobin 11.8 g/dl (12.0-16.0); Lymphocyte % 22.6 % (25-47); Mean Corpuscular HGB Conc 33 g/dl (31-36); Mean Corpuscular Hemoglobin 27 pg (27-31); Mean Corpuscular Volume 82 fL (80-97); Mean Platelet Volume 8.6 um3 (7.4-10.4); Nucleated Red Blood Cells % 0.1; Platelet Count 208 10^3/ul (150-450); Red Blood Count 4.36 10^6/ul (4.00-5.40); Red Cell Distribution Width 14 % (10.5-15)
[2018-07-21] MEDS ORDERED: Levofloxacin 750 MG IVPREMIX(* 750 MG/150 ML BAG IVPB ONE (00:54)
[2018-07-21] MEDS ORDERED: Iohexol 350* (CONTRAST) 500 ML MDV IV ONE (01:38)
[2018-07-21] MEDS ORDERED: Potassium Chlor TAB* 20 MEQ TAB.ER PO ONE (01:48)
[2018-07-21] MEDS ORDERED: Codeine TAB* 30 MG PO ONE (03:31)
[2018-07-21 03:34] VITALS: BP 107/67
--- NOTE | 2018-07-21 03:40 | RAD ---
EXAM: CT Angiography Chest With Intravenous Contrast CLINICAL HISTORY: 27 years old, female; Signs and symptoms; Cough and shortness of breath; Additional info: Pe TECHNIQUE: Axial computed tomographic angiography images of the chest with intravenous contrast using pulmonary embolism protocol. All CT scans at this facility use at least one of these dose optimization techniques: automated exposure control; mA and/or kV adjustment per patient size (includes targeted exams where dose is matched to clinical indication); or iterative reconstruction. MIP reconstructed images were created and reviewed. Coronal and sagittal reformatted images were created and reviewed. CONTRAST: 59 mL of OMNI 350 administered intravenously. COMPARISON: No relevant prior studies available. FINDINGS: Pulmonary arteries: Unremarkable. No pulmonary embolism. Aorta: No acute findings. No thoracic aortic aneurysm. Lungs: Scattered areas of small airspace opacities in the right anterior upper lobe, middle lobe, lingula, and lower lobes. Pleural space: Unremarkable. No significant effusion. No pneumothorax. Heart: Unremarkable. No cardiomegaly. No significant pericardial effusion. No evidence of RV dysfunction. Bones/joints: No acute fracture. No dislocation. Soft tissues: Unremarkable. Lymph nodes: Right hilar lymph nodes measuring up to 12 mm. IMPRESSION: No evidence of pulmonary embolism. Scattered areas of small airspace opacities in the right anterior upper lobe, middle lobe, lingula, and lower lobes. Findings may represent pneumonia in the proper clinical setting. Right hilar lymph nodes measuring up to 12 mm, reactive. To contact [facility] with a general question: [facility] - [phone] For direct physician to physician contact: Physician Hotline - [phone] [facility] ([facility] Facility ID #[id number])
[2018-07-21] MEDS ORDERED: Albuterol HFA INHALER* 8 gm MDI INH PRN (03:50)
[2018-07-21] MEDS ORDERED: Albuterol HFA INHALER* 8 gm MDI INH ONE (03:55)
--- NOTE | 2018-07-21 03:59 | ED ---
Shortness of Breath - HPI Summary HPI Summary: A 27 year old female presents to the ED c/o SOB since 07/16/18. She has had an intermittent fever, cold sweats and shoulder pain. She denies any leg pain nausea or vomiting. She has a PHx of asthma and is taking albuterol. She is currently menstuating. The fever spiked at 102. - History of Current Complaint Chief Complaint: EDShortnessOfBreath Time Seen by Provider: 07/20/18 22:34 Hx Obtained From: Patient Onset/Duration: Gradual Onset Timing: Constant Current Severity: Moderate Associated Signs & Symptoms: Chills, Diaphoresis - Allergy/Home Medications Allergies/Adverse Reactions: Allergies Allergy/AdvReac Type Severity Reaction Status Date / Time No Known Allergies Allergy Verified 07/20/18 21:15 PMH/Surg Hx/FS Hx/Imm Hx Endocrine/Hematology History: Denies: Hx Diabetes Cardiovascular History: Denies: Hx Hypertension, Hx Valvular Heart Disease Respiratory History: Reports: Hx Asthma History: Denies: Hx Renal Disease - Surgical History Surgery Procedure, Year, and Place: n/a Infectious Disease History: No Infectious Disease History: Denies: History Other Infectious Disease, Traveled Outside the [place] in Last 30 Days - Family History Known Family History: Negative: Cardiac Disease, Diabetes - Social History Alcohol Use: None Substance Use Type: Reports: None Hx Tobacco Use: Yes Smoking Status (MU): Light Every Day Tobacco Smoker Type: Cigarettes Amount Used/How Often: 1/2 PPD Have You Smoked in the Last Year: Yes Review of Systems Positive: Fever, Chills, Skin Diaphoresis Negative: Vomiting, Nausea Positive: Myalgia - positive: shoulder pain negative: leg pain All Other Systems Reviewed And Are Negative: Yes Physical Exam - Summary Physical Exam Summary: VITAL SIGNS: Reviewed. GENERAL: Patient is a well-developed and nourished FEMALE who is lying comfortable in the stretcher. Patient is not in any acute respiratory distress. HEAD AND FACE: No signs of trauma. No ecchymosis, hematomas or skull depressions. No sinus tenderness. EYES: PERRLA, EOMI x 2, No injected conjunctiva, no nystagmus. EARS: Hearing grossly intact. Ear canals and tympanic membranes are within normal limits. MOUTH: Oropharynx within normal limits. NECK: Supple, trachea is midline, no adenopathy, no JVD, no carotid bruit, no c- spine tenderness, neck with full ROM. CHEST: Symmetric, no tenderness at palpation LUNGS: Decreased breath sounds bilaterally. Inspiratory and expiratory wheezes. CVS: Regular rate and rhythm, S1 and S2 present, no murmurs or gallops appreciated. ABDOMEN: Soft, non-tender. No signs of distention. No rebound no guarding, and no masses palpated. Bowel sounds are normal. EXTREMITIES: FROM in all major joints, no edema, no cyanosis or clubbing. NEURO: Alert and oriented x 3. No acute neurological deficits. Speech is normal and follows commands. SKIN: Dry and warm Triage Information Reviewed: Yes Vital Signs On Initial Exam: Initial Vitals Temp Pulse Resp BP Pulse Ox 100 F 101 20 128/75 90 07/20/18 21:12 07/20/18 21:12 07/20/18 21:12 07/20/18 21:12 07/20/18 21:12 Vital Signs Reviewed: Yes Diagnostics - Vital Signs Vital Signs Temp Pulse Resp BP Pulse Ox 07/21/18 03:29 102 19 107/67 97 07/21/18 03:00 102 21 92 07/21/18 02:58 102 21 111/62 92 07/21/18 02:32 97 17 99 07/21/18 02:28 95 20 100/69 95 07/21/18 02:16 95 20 103/74 94 07/21/18 02:15 14 07/21/18 01:28 95 21 99/64 97 07/21/18 01:00 95 17 96 07/21/18 00:58 94 24 96/57 94 07/21/18 00:28 106 17 104/62 94 07/21/18 00:16 110 16 92 07/21/18 00:00 115 22 95 07/20/18 23:58 113 24 107/71 96 07/20/18 23:28 113 21 109/66 94 07/20/18 23:00 90 8 98 07/20/18 22:58 89 8 116/90 98 07/20/18 22:29 93 95 07/20/18 22:28 90 106/72 95 07/20/18 22:02 89 07/20/18 21:12 100 F 101 20 128/75 90 - Laboratory Lab Results: Lab Results 07/21/18 07/21/18 07/21/18 Range/Units 00:00 00:00 00:00 WBC 9.0 (3.5-10.8) 10^3/ul RBC 4.36 (4.00-5.40) 10^6/ul Hgb 11.8 L (12.0-16.0) g/dl Hct 36 (35-47) % MCV 82 (80-97) fL MCH 27 (27-31) pg MCHC 33 (31-36) g/dl RDW 14 (10.5-15) % Plt Count 208 (150-450) 10^3/ul MPV 8.6 (7.4-10.4) um3 Neut % (Auto) 68.1 (38-83) % Lymph % (Auto) 22.6 L (25-47) % Winkler % (Auto) 8.2 H (0-7) % Eos % (Auto) 0.7 (0-6) % Baso % (Auto) 0.4 (0-2) % Absolute Neuts (auto) 6.1 (1.5-7.7) 10^3/ul Absolute Lymphs (auto) 2.0 (1.0-4.8) 10^3/ul Absolute Monos (auto) 0.7 (0-0.8) 10^3/ul Absolute Eos (auto) 0.1 (0-0.6) 10^3/ul Absolute Basos (auto) 0 (0-0.2) 10^3/ul Absolute Nucleated RBC 0 10^3/ul Nucleated RBC % 0.1 INR (Anticoag Therapy) 1.05 H (0.77-1.02) APTT 31.5 (26.0-36.3) seconds D-Dimer, Quantitative 313 H (Less Than 230) ng/mL Sodium 140 (135-145) mmol/L Potassium 3.0 L (3.5-5.0) mmol/L Chloride 105 (101-111) mmol/L Carbon Dioxide 24 (22-32) mmol/L Anion Gap 11 (2-11) mmol/L BUN 6 (6-24) mg/dL Creatinine 0.71 (0.51-0.95) mg/dL Est GFR ( Amer) 121.4 (>60) Est GFR (Non-Af Amer) 100.3 (>60) BUN/Creatinine Ratio 8.5 (8-20) Glucose 129 H (70-100) mg/dL Lactic Acid (0.5-2.0) mmol/L Calcium 9.3 (8.6-10.3) mg/dL Total Bilirubin 0.60 (0.2-1.0) mg/dL AST 13 (13-39) U/L ALT 7 (7-52) U/L Alkaline Phosphatase 65 (34-104) U/L C-Reactive Protein 79.75 H (<8.01) mg/L Total Protein 6.8 (6.4-8.9) g/dL Albumin 4.0 (3.2-5.2) g/dL Globulin 2.8 (2-4) g/dL Albumin/Globulin Ratio 1.4 (1-3) Beta HCG, Quant 5.35 mIU/mL Influenza A (Rapid) (Negative) Influenza B (Rapid) (Negative) Group A Strep Rapid (Negative) 07/21/18 07/21/18 07/21/18 Range/Units 00:00 00:38 00:39 WBC (3.5-10.8) 10^3/ul RBC (4.00-5.40) 10^6/ul Hgb (12.0-16.0) g/dl Hct (35-47) % MCV (80-97) fL MCH (27-31) pg MCHC (31-36) g/dl RDW (10.5-15) % Plt Count (150-450) 10^3/ul MPV (7.4-10.4) um3 Neut % (Auto) (38-83) % Lymph % (Auto) (25-47) % Winkler % (Auto) (0-7) % Eos % (Auto) (0-6) % Baso % (Auto) (0-2) % Absolute Neuts (auto) (1.5-7.7) 10^3/ul Absolute Lymphs (auto) (1.0-4.8) 10^3/ul Absolute Monos (auto) (0-0.8) 10^3/ul Absolute Eos (auto) (0-0.6) 10^3/ul Absolute Basos (auto) (0-0.2) 10^3/ul Absolute Nucleated RBC 10^3/ul Nucleated RBC % INR (Anticoag Therapy) (0.77-1.02) APTT (26.0-36.3) seconds D-Dimer, Quantitative (Less Than 230) ng/mL Sodium (135-145) mmol/L Potassium (3.5-5.0) mmol/L Chloride (101-111) mmol/L Carbon Dioxide (22-32) mmol/L Anion Gap (2-11) mmol/L BUN (6-24) mg/dL Creatinine (0.51-0.95) mg/dL Est GFR ( Amer) (>60) Est GFR (Non-Af Amer) (>60) BUN/Creatinine Ratio (8-20) Glucose (70-100) mg/dL Lactic Acid 1.5 (0.5-2.0) mmol/L Calcium (8.6-10.3) mg/dL Total Bilirubin (0.2-1.0) mg/dL AST (13-39) U/L ALT (7-52) U/L Alkaline Phosphatase (34-104) U/L C-Reactive Protein (<8.01) mg/L Total Protein (6.4-8.9) g/dL Albumin (3.2-5.2) g/dL Globulin (2-4) g/dL Albumin/Globulin Ratio (1-3) Beta HCG, Quant mIU/mL Influenza A (Rapid) Negative (Negative) Influenza B (Rapid) Negative (Negative) Group A Strep Rapid Negative (Negative) Result Diagrams: 07/21/18 00:00 07/21/18 00:00 Lab Statement: Any lab studies that have been ordered have been reviewed, and results considered in the medical decision making process. - Radiology CXR Xray Interpretation: Positive (See Comments) Radiology Interpretation Completed By: ED Physician - Right lower lung PNA, right lower lung filtrate. Pending official report. - CT Chest/thorax CT Interpretation: Positive (See Comments) CT Interpretation Completed By: Radiologist - No evidence of pulmonary embolism. Scattered areas of small airspace opacities in the right anterior upper lobe, middle lobe, lingula, and lower lobes. Findings may represent pneumonia in the proper clinical setting. Right hilar lymph nodes measuring up to 12 mm, reactive. This report has been reviewed by the ED physician. Course/Dx - Course Course Of Treatment: A 27 year old female presents to the ED c/o SOB since . She has had an intermittent fever, cold sweats and shoulder pain. She denies any leg pain. She has a PHx of asthma and is taking albuterol. At 1:49 she had her period. She had decreased breath sounds and inspartory and expiatory wheezes. Her CXR showed Right lower lung PNA right lower lung filtrate. Patient will be discharged, given a work release and is agreeable to this plan. - Diagnoses Provider Diagnoses: Asthma, Pneumonia Discharge - Sign-Out/Discharge Documenting (check all that apply): Patient Departure - DC - Discharge Plan Condition: Stable Disposition: HOME Prescriptions: Albuterol HFA INHALER* [Ventolin HFA Inhaler*] 2 puff INH Q6H PRN #1 mdi PRN Reason: Sob/Wheezing Codeine TAB* [Codeine Tab*] 30 mg PO Q6H PRN #20 tab MDD 4 PRN Reason: Cough Ibuprofen TAB* [Motrin TAB* 600 MG] 600 mg PO Q6H PRN #30 tab PRN Reason: Fever/Pain Levofloxacin TAB* [Levaquin TAB*] 750 mg PO DAILY #10 tab predniSONE TAB* [Deltasone TAB*] 50 mg PO DAILY #5 tab Patient Education Materials: Asthma (ED), Pneumonia (ED) Forms: *Work Release Referrals: Kim Pino [employer] INSPECTOR [Primary Care Provider] - (2-3 days) Additional Instructions: RETURN TO THE EMERGENCY DEPARTMENT FOR CHANGING OR WORSENING SYMPTOMS. FOLLOW UP WITH PCP IN 1-2 DAYS. - Attestation Statements Document Initiated by Scribe: Yes Documenting Scribe: Marlon Case Provider For Whom Sallye is Documenting (Include Credential): Nasima Panda MD Scribe Attestation: Marlon Lopez, markibed for Nasima Panda MD on 07/21/18 at 1741.
--- NOTE | 2018-07-21 08:26 | RAD ---
Indication: Shortness of breath. History of asthma. History of tobacco use. Comparison: CT chest of the same date. Technique: Upright AP 0015 hours Report: Alveolar consolidation at the medial RIGHT lower lung zone with partial obscuration of the heart margin corresponding with the distribution of the RIGHT middle lobe. Less prominent generalized patchy alveolar consolidation at the bilateral lower lung zones. Negative for pleural effusion or pneumothorax. The heart, pulmonary vasculature, and mediastinal contours are unremarkable. IMPRESSION: #. Bronchopneumonia with the most confluent alveolar consolidation involving the RIGHT middle lobe. R0
== END 2018-07-21 04:04 | disposition home or self-care (01) ==
LOC: ED 21:07
DX: J18.9 Pneumonia, unspecified organism (principal); R06.02 Shortness of breath; R50.9 Fever, unspecified; F17.210 Nicotine dependence, cigarettes, uncomplicated; J45.909 Unspecified asthma, uncomplicated
CPT/HCPCS: 36415; 71045; 71275; 80053; 83605; 84702; 85025; 85379; 85610; 85730; 86140; 87651; 96365; 96366; 96375; 99285; A9270-GY; J1885; J2930; J3475; Q9967

== ENCOUNTER 2019-02-22 11:37 | Emergency (ER) | payer SELFPAY ==
[2019-02-22 12:08] VITALS: BP 111/82
--- NOTE | 2019-02-22 12:22 | UC ---
FLU HPI - HPI Summary HPI Summary: 28-year-old female with history of asthma presents with complaints of nasal congestion, sinus pressure, headache, sore throat, and a harsh occasionally productive cough for one week. She also noticed the onset of a rash to her bilateral arms and lower legs around the same time. Rash is occasionally itchy. States she has felt "hot and cold" at times but has had no measured fever. States she's had 2 episodes of posttussive emesis. Also had some mild nausea with decreased appetite. She has had to use her albuterol inhaler a couple of times. No recent travel. No changes in soaps, detergents, lotions, cosmetics, diet, or contact with known environmental irritants. Denies conjunctivitis, ear pain, dysphagia, chest pain, abdominal pain, or diarrhea. - History of Current Complaint Chief Complaint: UCRespiratory Stated Complaint: CONGESTED Time Seen by Provider: 02/22/19 12:02 Hx Obtained From: Patient Hx Last Menstrual Period: current, IUD Pain Intensity: 5 - Allergy/Home Medications Allergies/Adverse Reactions: Allergies Allergy/AdvReac Type Severity Reaction Status Date / Time No Known Allergies Allergy Verified 02/22/19 12:08 PMH/Surg Hx/FS Hx/Imm Hx Respiratory History: Asthma GI/ History: Gastroesophageal Reflux - Surgical History Surgical History: None Surgery Procedure, Year, and Place: n/a - Family History Known Family History: Positive: Non-Contributory - Social History Occupation: Employed Full-time Lives: With Family Alcohol Use: None Substance Use Type: None Smoking Status (MU): Light Every Day Tobacco Smoker Type: Cigarettes Amount Used/How Often: 2 sig/day Have You Smoked in the Last Year: Yes When Did the Patient Quit Smoking/Using Tobacco: 10/25/15 Household Exposure Type: Cigarettes - Immunization History Most Recent Influenza Vaccination: unknown Most Recent Tetanus Shot: 03/31/16 Most Recent Pneumonia Vaccination: none Review of Systems All Other Systems Reviewed And Are Negative: Yes Constitutional: Positive: Chills, Fatigue Skin: Positive: Rash Eyes: Negative: Blurred Vision, Diplopia, Drainage, Eye Redness, Photophobia ENT: Positive: Sore Throat, Nasal Discharge, Sinus Congestion, Sinus Pain/ Tenderness. Negative: Ear Ache Respiratory: Positive: Shortness Of Breath, Cough, Other - Wheezing Cardiovascular: Negative: Palpitations, Chest Pain Gastrointestinal: Positive: Vomiting, Nausea. Negative: Abdominal Pain, Diarrhea Genitourinary: Positive: Negative Musculoskeletal: Positive: Negative Neurological: Positive: Headache Is Patient Immunocompromised?: No Physical Exam - Summary Physical Exam Summary: GENERAL APPEARANCE: Well developed, well nourished, alert and cooperative, and appears to be in no acute distress. EYES: Conjunctiva clear. No drainage. EARS: External auditory canals and tympanic membranes clear, hearing grossly intact. NOSE: Moderate nasal congestion. THROAT: Pharyngeal erythema without tonsilar inflammation, swelling, exudate, or lesions. Uvula midline. Oral cavity normal. Teeth and gingiva in good general condition. NECK: Neck supple, non-tender without lymphadenopathy. CARDIAC: Normal S1 and S2. No S3, S4 or murmurs. Rhythm is regular. There is no peripheral edema, cyanosis or pallor. Extremities are warm and well perfused. Capillary refill is less than 2 seconds. Peripheral pulses intact. LUNGS: Decreased bilateral breath sounds with diffuse wheezing. Harsh, bronchospastic cough. ABDOMEN: Positive bowel sounds. Soft, nondistended, nontender. No guarding or rebound. No masses or hepatosplenomegally. MUSKULOSKELETAL: ROM intact to all extremities. No joint erythema or tenderness. Normal muscular development. Normal gait. SKIN: Macular rash with plaques to bilateral forearms, lower legs, and tops of her feet. Triage Information Reviewed: Yes Vital Signs: Initial Vital Signs Temp 99.0 F 02/22/19 12:03 Pulse 93 02/22/19 12:03 Resp 16 02/22/19 12:03 BP 111/82 02/22/19 12:03 Pulse Ox 95 02/22/19 12:03 Vital Signs Reviewed: Yes Diagnostics - Radiology No standard instances Radiology Interpretation Completed By: Radiologist Summary of Radiographic Findings: Order Information: CHEST PA LAT 2 VWS. Accession Number: [id number]. CPT: 40955. Indication: Cough, wheezing. 2 views of the chest including dual energy PA views demonstrates no mediastinal shift. Heart is of normal size and configuration. Lung casanova appear clear. IMPRESSION: No active cardiopulmonary disease is noted Re-Evaluation - Re-Evaluation First Eval Re-Evaluation Time: 13:07 Change: Improved Comment: Post-nebulizer treatment patient reports breathing is much easier and cough is more loose. She continued to have a few scattered wheezes but air exchange much improved. CXR normal. Rapid strep is negative. Results reviewed with patient. Flu Course/Dx - Course Course Of Treatment: 28-year-old female with history of asthma presents with complaints of nasal congestion, sinus pressure, headache, sore throat, and a harsh occasionally productive cough for one week. She also noticed the onset of a rash to her bilateral arms and lower legs around the same time. Rash is occasionally itchy. States she has felt "hot and cold" at times but has had no measured fever. States she's had 2 episodes of posttussive emesis. Also had some mild nausea with decreased appetite. She has had to use her albuterol inhaler a couple of times. No recent travel. No changes in soaps, detergents, lotions, cosmetics, diet, or contact with known environmental irritants. Denies conjunctivitis, ear pain, dysphagia, chest pain, abdominal pain, or diarrhea. Afebrile. Vital signs stable. Exam revealed moderate nasal congestion, pharyngeal erythema without tonsillar swelling, exudate, or cervical lymphadenopathy, decreased bilateral breath sounds with diffuse wheezing, a harsh, bronchospastic cough, and a macular rash with plaques to bilateral forearms, lower legs, and tops of her feet. Chest x-ray was obtained and was normal. A rapid strep test was negative. Patient received a DuoNeb treatment and prednisone 60 mg PO in the clinic. Post nebulizer treatment patient reported improved breathing and loosening of her cough. She continued to have a few scattered bilateral wheezes with much improved air exchange. Will treat her for an upper respiratory infection with asthma exacerbation. She is to start Augmentin 875 mg twice a day 10 days and prednisone 50 mg daily 4 days. She is to follow-up with her primary care provider in 2-3 days for recheck of her symptoms. Anticipatory guidance and warning symptoms were reviewed with the patient. Verbalizes understanding and agrees with plan of care. - Differential Dx/Diagnosis Differential Diagnosis/HQI/PQRI: Bronchitis, Influenza, Pneumonia, Upper Respiratory Infection Provider Diagnosis: Upper respiratory infection with cough and congestion, Asthma exacerbation Discharge - Sign-Out/Discharge Documenting (check all that apply): Patient Departure All imaging exams completed and their final reports reviewed: Yes - Discharge Plan Condition: Stable Disposition: HOME Prescriptions: Amoxicillin/Clavulanate TAB* [Augmentin TAB 875*] 875 mg PO BID #20 tab predniSONE TAB* [Deltasone TAB*] 50 mg PO DAILY #4 tab Patient Education Materials: Asthma (ED), Upper Respiratory Infection (ED) Forms: *Work Release Referrals: Kim Pino NP [Primary Care Provider] - 2 Days Additional Instructions: Your history and exam are consistent with an upper respiratory infection with asthma exacerbation. The chest x-ray performed in the clinic today was normal and the rapid strep test was negative. Based on the duration and severity of your symptoms I am going to treat you with an antibiotic. Start Augmentin 875 mg 1 tab twice a day for 10 days. Take with food to avoid upset stomach. Be sure to complete the entire course even if feeling better. Take prednisone 50 mg 1 tab daily for 4 days to help with the wheezing and SOB. We gave you a dose in the clinic so start this tomorrow. Be sure to use your albuterol inhaler 2 puffs every 4-6 hours as needed for shortness of breath, wheezing, or coughing fits. Use a saline rinse kit such as Neti Pot or NeilMed at least twice a day to help thin secretions and promote drainage of the sinuses. Use fluticasone (Flonase) nasal spray 2 sprays each nostril once daily. Take over the counter acetaminophen (Tylenol) or ibuprofen (Advil, Motrin) according to directions as needed for pain or fever. Use salt water gargles several times a day if you have a sore throat. You may also use Chloraseptic spray or Cepacol lonzenges according to directions which contain a numbing medication and can provide some temporary relief from your sore throat. Follow up with your primary care provider in 2-3 days for a recheck of your symptoms. Call today for an appointment. Seek immediate medical attention in the emergency room if you have fever greater than 100.5 F despite taking acetaminophen or ibuprofen, have chest pain , difficulty breathing, are unable to swallow, or have any worsening of symptoms. - Billing Disposition and Condition Condition: STABLE Disposition: Home
[2019-02-22] MEDS ORDERED: Albuterol/Ipratropium NEB.SOL* Albuterol 2.5 MG/Ipratropium 0.5 MG 3 ML INH ONE (12:34)
[2019-02-22] MEDS ORDERED: predniSONE TAB* 20 MG PO ONE (12:34)
== END 2019-02-22 13:35 | disposition home or self-care (01) ==
LOC: UCEAST 11:37
DX: J06.9 Acute upper respiratory infection, unspecified (principal); J45.901 Unspecified asthma with (acute) exacerbation; R05 Cough; R09.81 Nasal congestion; R21 Rash and other nonspecific skin eruption; R11.2 Nausea with vomiting, unspecified; F17.210 Nicotine dependence, cigarettes, uncomplicated
CPT/HCPCS: 71046; 87651; 99212; A9270-GY; G0463; J7512

== ENCOUNTER 2019-07-03 20:22 | Emergency (ER) | payer OTHER ==
--- OUTSIDE RECORDS SUMMARY | 2019-07-03 20:30 | XMS REPORT | Continuity of Care Document ---
:1990 External Reference #:[id number] Author Name Karissa Hardy NP Address [address] [place] [address] Care Team Providers Name Role Phone Zaire Reyna MD - Family Care Team Information Online Marketing Coordinator Medicine Problems Description No Information Available Social History Type Date Description Comments Sex Unknown Tobacco Use Start: Unknown Current Cigarette Smoker 1/2 Pack Daily ETOH Use Rare Recreational Drug Use Denies Drug Use Allergies, Adverse Reactions, Alerts Description No Known Drug Allergies Medications Active Medications SIG Qnty Indications Ordering Provider Date Amoxicillin take 10ml by 200ml J02.0 Karissa Clifton 05/25/2019 400mg/5ML mouth twice SOHEILA Hardy Suspension Rec daily for 10 days Note No Work Robin was J06.9 STAR Hays 11/10/2018 seen by me today, missed work 1\\23-25\\19 due to illness. Proventil HFA 2 puffs every 4 1units J45.909 Jaimee De Souza 06/19/2014 108(90Base) hours as needed Anuel Spear mcg/Act Aerosol Omeprazole 1 by mouth Unknown 20mg Capsules DR every day Paragard Intrauterine Unknown Copper Contraceptive T380a T380a IUD Medications Administered in Office Medication SIG Qnty Indications Ordering Provider Date Injection Rocephrin 250 MG ST[facility] Hays 01/27/2011 Injection Injection Subcutaneous Or [facility]ays 01/27/2011 Intramuscular Injection Injection Subcutaneous Or Camryn Abdi M.D. 08/01/2010 Intramuscular Injection Injection Subcutaneous Or Camryn Abdi M.D. 05/01/2010 Intramuscular Injection Immunizations CPT Code Status Date Vaccine Lot # [id number] Given 08/02/2008 Tdap Tetanus, W Pertussis [id number] Given 01/01/1999 Hep A Ped 2-Dose Immunization 65224 Given 05/17/1998 Hep A Ped 2-Dose Immunization 58270 Given 01/30/1997 (IPV) Inactive Poliovirus Vaccine 59643 Given 01/30/1997 MMR Virus Immunization 10270 Given 01/30/1997 DTaP Immunization 18922 Given 07/16/1995 Hepatitis B Immunization, [place]-19 Years 49626 Given 01/13/1995 Hepatitis B Immunization, -19 Years 86020 Given 01/13/1995 DTaP Immunization 74556 Given 10/30/1994 Hepatitis B Immunization, [place]-19 Years 76574 Given 05/28/1994 (Hib) Hemoplilus Influenza B 52260 Given 05/28/1994 DTaP Immunization 86027 Given 05/28/1994 MMR Virus Immunization 84915 Given 05/28/1994 (IPV) Inactive Poliovirus Vaccine 04456 Given 05/29/1993 (IPV) Inactive Poliovirus Vaccine 01778 Given 05/29/1993 DTaP Immunization 46537 Given 05/29/1993 (Hib) Hemoplilus Influenza B 19989 Given 02/28/1993 (IPV) Inactive Poliovirus Vaccine 43809 Given 02/28/1993 DTaP Immunization 37438 Given 02/28/1993 (Hib) Hemoplilus Influenza B Vital Signs Date Vital Result Comment 05/25/2019 9:10am BP Systolic 100 mmHg BP Diastolic 68 mmHg Heart Rate 90 /min Body Temperature 98.7 F Respiratory Rate 16 /min Weight 131.00 lb 11/10/2018 9:23am BP Systolic 96 mmHg BP Diastolic 60 mmHg Heart Rate 56 /min Body Temperature 98.1 F Respiratory Rate 16 /min Height 67 inches 5'7" Weight 133.00 lb BMI (Body Mass Index) 20.8 kg/m2 Results Test Date Facility Test Result H/L Range Note Laboratory test 02/22/2019 [facility] Rapid Strep Negative Negative 1 finding Molecular 1 [employer]: [id number] Procedures Description No Information Available Medical Devices Description No Information Available Encounters Description No Information Available Assessments Date Code Description Provider 05/25/2019 J02.0 Streptococcal pharyngitis Karissa Hardy NP Plan of Treatment 05/25/2019 - Karissa Hardy NPJ02.0 Streptococcal pharyngitisNew Medication: Amoxicillin 400 mg/5ML - take 10ml by mouth twice daily for 10 daysAllComments: 1. Patient has been queried about patient's goals/preferences and functional/ lifestyle goals at relevant visits. If relevant, describe: Has been discussed, noted above2. Treatment goals as explainedto the patient: see above3. Are there barriers to meeting treatment goals? Yes If Yes, please describe: Barriers include possible insurance limits, disease process, and difficulty with lifestyle changes4. Self-Management goals as described to the patient: Yes , see above As always, we strongly encourage a healthy diet and making physical activity a part of your every day life. If you have questions about how or where to start, please contact the office. Functional Status Description No Information Available Mental Status Description No Information Available Referrals Description No Information Available
[2019-07-03 20:33] VITALS: BP 122/76
[2019-07-03] MEDS ORDERED: Albuterol/Ipratropium NEB.SOL* Albuterol 2.5 MG/Ipratropium 0.5 MG 3 ML INH ONE (20:43)
[2019-07-03] MEDS ORDERED: predniSONE TAB* 20 MG PO ONE (20:44)
[2019-07-03] MEDS ORDERED: Albuterol 2.5 MG/3 ML NEB.SOL* (0.083%) INH ONE (21:13)
[2019-07-03] MEDS ORDERED: Azithromycin TAB* 250 MG PO ONE (21:13)
[2019-07-03] MEDS ORDERED: Albuterol HFA INHALER* 8 gm MDI INH ONE (21:25)
--- NOTE | 2019-07-03 21:30 | UC ---
Respiratory Complaint HPI - HPI Summary HPI Summary: harsh cough and chest tightness worsening over past few days - History of Current Complaint Chief Complaint: UCRespiratory Stated Complaint: CHEST TIGHTNESS, COUGH Time Seen by Provider: 07/03/19 20:29 Hx Obtained From: Patient Hx Last Menstrual Period: 07/01/19 ?: No Onset/Duration: Sudden Onset, Gradual Onset Timing: Constant Severity Initially: Mild Severity Currently: Mild Pain Intensity: 7 Pain Scale Used: 0-10 Numeric Character: Cough: Nonproductive Aggravating Factors: Deep Breaths, Recumbent Position Alleviating Factors: Bronchodilator Associated Signs And Symptoms: Positive: Wheezing - Allergies/Home Medications Allergies/Adverse Reactions: Allergies Allergy/AdvReac Type Severity Reaction Status Date / Time No Known Allergies Allergy Verified 07/03/19 20:33 Home Medications: Home Medications Acetaminophen/Pamabrom [Midol Caplet] 2 each PO ONCE PRN 07/03/19 [History Confirmed 07/03/19] PMH/Surg Hx/FS Hx/Imm Hx Previously Healthy: No Respiratory History: Asthma GI/ History: Gastroesophageal Reflux - Surgical History Surgical History: None Surgery Procedure, Year, and Place: n/a - Family History Known Family History: Positive: Non-Contributory Negative: Cardiac Disease, Diabetes - Social History Occupation: Employed Full-time Lives: With Family Alcohol Use: None Substance Use Type: None Smoking Status (MU): Current Every Day Smoker Type: Cigarettes Amount Used/How Often: 3 cig/day Have You Smoked in the Last Year: Yes When Did the Patient Quit Smoking/Using Tobacco: 10/25/15 Household Exposure Type: Cigarettes - Immunization History Most Recent Influenza Vaccination: unknown Most Recent Tetanus Shot: 03/31/16 Most Recent Pneumonia Vaccination: none Review of Systems All Other Systems Reviewed And Are Negative: Yes Constitutional: Positive: Negative Eyes: Positive: Blurred Vision ENT: Positive: Negative Respiratory: Positive: Shortness Of Breath, Cough Cardiovascular: Positive: Negative Gastrointestinal: Positive: Negative Genitourinary: Positive: Negative Motor: Positive: Negative Neurovascular: Positive: Negative Musculoskeletal: Positive: Negative Neurological: Positive: Negative Psychological: Positive: Negative Is Patient Immunocompromised?: No Physical Exam Triage Information Reviewed: Yes Appearance: No Pain Distress, Well-Nourished, Ill-Appearing - mild Vital Signs: Initial Vital Signs Temp 97.7 F 09/22/19 20:30 Pulse 75 07/03/19 20:30 Resp 16 07/03/19 20:30 BP 122/76 07/03/19 20:30 Pulse Ox 93 07/03/19 20:30 Vital Signs Reviewed: Yes Eye Exam: Normal Eyes: Positive: Conjunctiva Clear ENT Exam: Normal ENT: Positive: Normal ENT inspection, Hearing grossly normal, Pharynx normal, TMs normal, Uvula midline. Negative: Nasal congestion, Tonsillar swelling, Trismus, Muffled voice, Hoarse voice, Dental tenderness, Sinus tenderness Dental Exam: Normal Neck exam: Normal Neck: Positive: Supple, Nontender Respiratory Exam: Normal Respiratory: Positive: Chest non-tender, No accessory muscle use, Decreased breath sounds, Wheezing Cardiovascular Exam: Normal Cardiovascular: Positive: RRR, No Murmur, Pulses Normal, Brisk Capillary Refill Musculoskeletal Exam: Normal Musculoskeletal: Positive: Strength Intact, ROM Intact, No Edema Neurological Exam: Normal Neurological: Positive: Alert, Muscle Tone Normal Psychological Exam: Normal Skin Exam: Normal Re-Evaluation - Re-Evaluation First Eval Change: Improved - after prednisone, duoneb and albuterol neb lungs have increase airmovement significant decrease in wheeze patient reports feeling much better O2 sat up to 96/97% Respiratory Course/Dx - Course Course Of Treatment: zithrmax, prednisone, albuterol mdi with spacer, tessalon for cough--increase fluids, follow with pcp - Differential Dx/Diagnosis Provider Diagnosis: Acute bronchitis with bronchospasm Discharge ED - Sign-Out/Discharge Documenting (check all that apply): Patient Departure All imaging exams completed and their final reports reviewed: No Studies - Discharge Plan Condition: Stable Disposition: HOME Prescriptions: Albuterol HFA INHALER* [Ventolin HFA Inhaler*] 2 puff INH Q6H PRN #1 mdi PRN Reason: cough/wheeze Azithromycin TAB* [Zithromax TAB (Z-SARITHA) 250 mg #6 tabs] 250 mg PO DAILY #4 tab Benzonatate CAP* [Tessalon 100 MG CAP*] 100 mg PO QID #40 cap predniSONE [Prednisone 20 MG TAB] 20 mg PO DAILY #9 tablet Patient Education Materials: How to Stop Smoking (ED), Acute Bronchitis (ED), Bronchospasm (ED), How to Use a Metered-Dose Inhaler and a Spacer (ED) Forms: *Work Release Referrals: Kim Pino NP [Primary Care Provider] - If Needed [facility] [Outside] - If Needed - Billing Disposition and Condition Condition: STABLE Disposition: Home
== END 2019-07-03 21:54 | disposition home or self-care (01) ==
LOC: UCEAST 20:22
DX: R07.9 Chest pain, unspecified (principal); R05 Cough; Z87.891 Personal history of nicotine dependence
CPT/HCPCS: 99213; A9270-GY; G0463; J7512

== ENCOUNTER 2022-04-03 17:19 | Inpatient (IN) ==
[2022-04-03] MEDS ORDERED: Lactated Ringers 1000 ml BAG 1,000 ML IV ONE (18:06)
[2022-04-03] MEDS ORDERED: Dinoprostone 10 MG VAG.SUPP VAGINAL ONE (18:06)
[2022-04-03] MEDS ORDERED: Buffered Lidocaine 1% SYRIN 1 ml INTRADERM ONE (18:06)
[2022-04-03 18:45] LABS: Urine Benzodiazepine Screen None Detected (None Detect); Urine Cannabinoids Screen Presumptive Positive (None Detect); Urine Opiates Screen None Detected (None Detect)
[2022-04-03] MEDS ORDERED: Lactated Ringers 1000 ml BAG 1,000 ML IV SCH (19:00)
[2022-04-03] MEDS ORDERED: Morphine 10 MG/ML VIAL (1 ml) IM ONE (20:16)
[2022-04-03] MEDS ORDERED: Promethazine INJ(RESTRICTED) 25 MG/ML 1 ml VIAL IM ONE (20:16)
[2022-04-04 10:00] LABS: ABS Basophils 0.1 10^3/ul (0-0.2); ABS Eosinophils 0.1 10^3/ul (0-0.6); ABS Lymphocytes 1.6 10^3/ul (1.0-4.8); ABS Monocytes 0.5 10^3/ul (0-0.8); ABS Neutrophils 5.2 10^3/ul (1.5-7.7); Eosinophil % 1.2 %; Hematocrit 31 % (35-47); Hemoglobin 10.3 g/dL (12.0-16.0); Lymphocyte % 21.3 %; Mean Corpuscular HGB Conc 33 g/dL (31-36); Mean Corpuscular Hemoglobin 27 pg (27-31); Mean Corpuscular Volume 81 fL (80-97); Mean Platelet Volume 8.5 fL (7.4-10.4); Platelet Count 208 10^3/uL (150-450); Red Blood Count 3.82 10^6 /uL (3.70-4.87); Red Cell Distribution Width 14 % (10-15); White Blood Count 7.4 10^3/uL (3.5-10.8)
[2022-04-04] MEDS ORDERED: Oxytocin in LR 20 UNITS/1,000 ML BAG IVPB SCH ×2 (10:00→19:00)
[2022-04-04] MEDS ORDERED: Calcium Carb (TUMS) 500 mg CHEW TAB PO PRN (10:58)
[2022-04-04] MEDS ORDERED: Albuterol HFA INHALER 8 gm MDI INH PRN (12:03)
[2022-04-04] MEDS ORDERED: OBEPIDURAL (200 ML) 200 ML EPIDURAL ONE (15:15)
[2022-04-04] MEDS ORDERED: Lidocaine/Epinephrin 1.5%/200 5 ML AMP INJ ONE ×2 (15:16→15:32)
[2022-04-04] MEDS ORDERED: Phenylephrine 40 mcg/mL 10mL (400mcg) SYRINGE IV PUSH PRN (15:52)
[2022-04-04] MEDS ORDERED: Lactated Ringers 1000 ml BAG 1,000 ML IV ONE (15:52)
[2022-04-04] MEDS ORDERED: Lactated Ringers 1000 ml BAG 500 ML IV PRN (15:52)
[2022-04-04] MEDS ORDERED: Sodium Citrate/Citric Acid LIQ 15 ML UDC PO PRN (15:52)
[2022-04-04] MEDS ORDERED: OBEPIDURAL (200 ML) 200 ML EPIDURAL SCH (16:00)
[2022-04-04] MEDS ORDERED: Lactated Ringers 1000 ml BAG 1,000 ML IV SCH ×2 (16:00→19:00)
[2022-04-04 16:43] LABS: Urine Appearance Cloudy; Urine Bilirubin Negative (Negative); Urine Blood Negative (Negative); Urine Color Yellow; Urine Glucose Negative (Negative); Urine Ketones 1+ (Negative); Urine Nitrite Negative (Negative); Urine Protein Negative (Negative); Urine Specific Gravity 1.014 (1.002-1.030); Urine Urobilinogen Negative (Negative)
[2022-04-04] MEDS ORDERED: Witch Hazel PAD JAR TOPICAL PRN (18:07)
[2022-04-04] MEDS ORDERED: Dibucaine 1% OINT 28.35 GM TUBE PR PRN (18:07)
[2022-04-05 07:22] LABS: ABS Eosinophils 0.1 10^3/ul (0-0.6); ABS Lymphocytes 1.9 10^3/ul (1.0-4.8); ABS Monocytes 0.8 10^3/ul (0-0.8); ABS Neutrophils 5.4 10^3/ul (1.5-7.7); Eosinophil % 1.5 %; Hematocrit 29 % (35-47); Hemoglobin 9.7 g/dL (12.0-16.0); Mean Corpuscular HGB Conc 33 g/dL (31-36); Mean Corpuscular Hemoglobin 27 pg (27-31); Mean Corpuscular Volume 82 fL (80-97); Mean Platelet Volume 8.4 fL (7.4-10.4); Platelet Count 197 10^3/uL (150-450); Red Blood Count 3.55 10^6 /uL (3.70-4.87); Red Cell Distribution Width 14 % (10-15); White Blood Count 8.2 10^3/uL (3.5-10.8)
[2022-04-06 09:08] VITALS: BP 117/72
== END 2022-04-06 16:05 | disposition home or self-care (01) | DRG 806 ==
LOC: MCHOBOUT 17:19 → MCHOB 17:53
PROVIDERS: ADMIT Midwife; ATTEND Midwife